=== PATIENT | female | born 1935 | race Caucasian/White ===

== ENCOUNTER 2024-08-11 01:13 | Inpatient (IN) ==
--- NOTE | 2024-08-11 01:27 | Emergency Department Note ---
Impression & Plan Cellulitis, Hyperkalemia, Generalized weakness ED Provider Note Name: YOLETTE PEACE Age: 89 Sex: Female Arrives Via: Ambulance Informant: Patient, daughters ED Provider: Payam Jimenez MD Chief Complaint: Weakness Impression: As per impressions above Medical Decision Making: Pleasant 89-year-old female arrives for evaluation of significant worsening of weakness at home and inability to stand secondary to weakness. She has no neurodeficits on arrival and no headache neck pain or recent head injury. Ongoing symptoms for 2 to 3 days. She has edema of the right lower leg with an anterior right dubon cellulitis spreading beyond what was marked several hours earlier. Patient is afebrile but does have a history of significant bacteremia sepsis. Given degree of weakness and findings blood cultures lactic acid obtained. Fortunately there is no evidence of sepsis at this time beyond the weakness but I do not feel she meets severe sepsis/septic shock criteria. She was given 1 L normal saline bolus as she appears a bit on the dehydrated side. She was empirically given Rocephin for antibiotic coverage along with vancomycin. Patient is feeling bit better after some IV fluids. She looks well but given the degree of weakness that worsening cellulitis and her significant history of infections hospitalization is indicated. Triage/Nursing Notes reviewed by Me Differential:Infection, dehydration, metabolic abnormality, hypo/hyperglycemia, electrolyte disturbance, anemia, hypoxia, cardiac sources, intracerebral event, toxicologic, neurologic, as well as other pathologies. Vital Signs: reviewed and remarkable for mildly elevated potassium nonspecific. Interventions: 1 L normal saline bolus IV, Rocephin IV, vancomycin IV Labs:ED labs Reviewed by me and remarkable for no significant abnormalities EKG:As per my interpretation. Indication weakness. Sinus rhythm with sinus arrhythmia at 73 bpm QTc of 414. There is no ectopy nor ischemia. There are no previous EKGs for comparison. Cardiac/Tele Monitoring: Cardiac Monitoring: An Order was placed for continuous cardiac monitoring. The monitor shows a rate of 70 with a normal sinus rhythm. Consults:[facility] and he will further evaluate and manage Plan: Disposition:Hospitalization. Condition: Good History of Present Illness: 89-year-old female arrives for evaluation of weakness. Patient notes that for the last 2 to 3 days worsening fatigue illness body aches shoulder aches and exhaustion. This evening while going to the bathroom she was so weak she could not stand up ended up kneeling on her knees for a bit. Denies any specific pain. EMS called given the severe weakness. Patient brought to the ER no interventions prior to arrival. Patient has no specific complaints other than feeling a bit tired currently. Patient does have a history of sepsis and a "bloodstream infection" in the last several years following a heart catheterization. She notes some chronic right leg swelling. Her daughter few hours ago marked a red area on her right lower leg. Past Medical History: Hypertension, hypothyroidism, CKD, CHF Home Medications:See Below Allergies:See Below Vitals:Blood Pressure: 145/74, Pulse 66, RR 16, T 36.7C, O2 95% on RA Physical Exam: GENERAL: Patient is elderly appearing and in mild distress. Dehydrated appearing. RESPIRATORY: No dyspnea. Clear to auscultation and equal bilaterally. CARDIOVASCULAR: Regular rate and rhythm.No murmur appreciated. GASTROINTESTINAL: Abdomen soft, non-tender, no peritonitis. EXTREMITIES: Cellulitis right anterior dubon, extending beyond marked areas. Normal motion all extremities, no cyanosis, moderate right lower leg edema. NEUROLOGIC: Alert and oriented. No focal neurologic deficits appreciated SKIN: No rash, no jaundice, no diaphoresis. PSYCH: Appropriate GCS: 15 ED Course: Times/Reassessments: Patient appears a bit improved with IV fluids and they are agreeable to hospitalization. Payam Jimenez MD Past Med/Surg History Problem List (Updated 08/11/24 @ 05:28 by Payam Jimenez MD) Generalized weakness (Acute) Hyperkalemia (Acute) HFrEF (heart failure with reduced ejection fraction) HTN (hypertension) Hypothyroidism Elevated troponin CKD (chronic kidney disease) Cellulitis (Acute) Surgical History (Updated 08/11/24 @ 04:27 by Justine Orr DO) H/O total knee replacement B/L S/P hysterectomy Social History Smoking Status: Never smoker Preferred Language: Greenlandic Feels Safe at Home: Yes Allergies Allergies Allergy/AdvReac Type Severity Reaction Status Date / Time amlodipine [From Norvasc] Allergy Unknown Verified 08/11/24 04:18 clindamycin Allergy Unknown Verified 08/11/24 04:18 gabapentin [From Neurontin] Allergy Unknown Verified 08/11/24 04:18 meloxicam [From Mobic] Allergy Unknown Verified 08/11/24 04:18 Penicillins Allergy Unknown Verified 08/11/24 04:18 Dlxiurp-CRH-QxK Reductase Allergy Unknown Verified 08/11/24 04:18 Inhibitor Sulfa (Sulfonamide Allergy Unknown Verified 08/11/24 04:18 Antibiotics) tramadol Allergy Unknown Verified 08/11/24 04:18 Home Meds Home Medications Medication Instructions Recorded Confirmed carvedilol 25 mg tablet 25 mg BID 08/11/24 08/11/24 furosemide 40 mg tablet 40 mg DAILY 08/11/24 08/11/24 levothyroxine 75 mcg tablet 75 mcg DAILY 08/11/24 08/11/24 potassium chloride 20 mEq 40 meq PO DAILY 08/11/24 08/11/24 tablet,extended release(part/cryst) sacubitril 97 mg-valsartan 103 mg 97 - 103 tab BID 08/11/24 08/11/24 tablet (Entresto) spironolactone 25 mg tablet 25 mg DAILY 08/11/24 08/11/24 Results & Data (ED) Vital Signs Vital Signs - 24 hr 08/11/24 01:25 08/11/24 01:26 08/11/24 01:54 Temperature 36.7 C Temperature Source Oral Pulse Rate 60 67 Respiratory Rate 16 Blood Pressure 205/90 H Blood Pressure Mean 128 Pulse Oximetry 97 98 Oxygen Delivery Method Room Air Room Air Sepsis Recent Fever Within 48 Hours No Sepsis New/Unexplained Change in Mental Status N/A Sepsis Action Taken by Nursing No Action Required Laboratory Data 08/11/24 01:35 08/11/24 01:35 Lab Results 08/11/24 08/11/24 08/11/24 Range/Units 01:35 01:49 01:50 WBC 12.41 H (4.8-10.8) K/ul RBC 4.09 L (4.20-5.40) M/uL Hgb 12.1 (12.0-16.0) g/dl Hct 36.7 L (37.0-47.0) % MCV 89.7 (80.0-100.0) fL MCH 29.6 (25.0-34.0) pg MCHC 33.0 (32.0-36.0) g/dL RDW Std Deviation 43.7 (36.4-46.3) fL RDW Coeff of Autumn 13.3 (11.5-14.5) % Plt Count 252 (130-400) K/uL MPV 11.1 (9.4-12.4) fL Immature Gran % (Auto) 0.4 % Neut % (Auto) 82.9 % Lymph % (Auto) 7.6 % Harney % (Auto) 8.1 % Eos % (Auto) 0.7 % Baso % (Auto) 0.3 % Neut # (Auto) 10.29 H (1.40-6.50) K/uL Lymph # (Auto) 0.94 L (1.20-3.40) K/uL Harney # (Auto) 1.00 H (0.11-0.59) K/uL Eos # (Auto) 0.09 (0.00-0.50) K/uL Baso # (Auto) 0.04 (0.00-0.20) K/uL Immature Gran # (Auto) 0.05 (0.01-0.20) K/uL Sodium 135 L (136-145) mmol/L Potassium 5.5 H (3.5-5.1) mmol/L Chloride 107 (98-107) mmol/L Carbon Dioxide 23 (21-32) mmol/L Anion Gap 5 (3-11) BUN 32 H (6-23) mg/dl Creatinine 1.50 H (0.6-1.2) mg/dl Est Cr Clr Drug Dosing 37.8 ml/min eGFR 33.52 BUN/Creatinine Ratio 21.3 H (10-20) Glucose 109 H (70-99(Fasting)) mg/dl Lactate 0.8 (0.4-2.0) mmol/L Calcium 8.8 (8.6-10.3) mg/dl Magnesium 1.8 (1.7-2.4) mg/dl Total Creatine Kinase 34 (26-192) U/L Troponin I High Sens 24.8 H (0-14) pg/ml Procalcitonin 0.03 (0-0.5) ng/ml TSH 1.781 (0.300-4.500) uIu/ml SARS-CoV-2 (PCR) NEGATIVE (Negative) Influenza Type A (PCR) Negative (Neg) Influenza Type B (PCR) Negative (Neg) RSV (RT-PCR) Negative (Neg) Administered Medications Discontinued Medications Sodium Chloride (Nss) 1,000 mls @ 999 mls/hr IV .Q1H1M ONE Stop: 08/11/24 02:23 Last Infusion: 08/11/24 05:10 Dose: Infused Documented By: Admin: 08/11/24 02:34 Dose: 999 mls/hr Documented By: IDD Ceftriaxone Sodium (Rocephin) 2,000 mg in 50 mls @ 100 mls/hr IV NOW STA Stop: 08/11/24 03:48 Last Infusion: 08/11/24 05:10 Dose: Infused Documented By: Admin: 08/11/24 04:32 Dose: 100 mls/hr Documented By: IDD Imaging Data Radiologist's Impression: Chest X-Ray 08/11/24 01:24 EXAM: XR chest 1V portable CLINICAL HISTORY: WEAKNESS JMF TECHNIQUE: Radiograph of chest was acquired. COMPARISON: None. FINDINGS: The lungs are clear and well-expanded with no pulmonary infiltrate or pleural effusion. The cardiomediastinal silhouette is within normal limits. No acute osseous abnormality. IMPRESSION: 1. No acute cardiopulmonary disease. Electronically signed by Madhu Del Toro 08-11-2024 03:18 AM Discharge Plan Visit Data Chief Complaint: Weakness Stated Complaint: WEAKNESS ED Provider: Payam Jimenez Discharge Problem: Cellulitis, Hyperkalemia, Generalized weakness Patient Disposition: Admitted As Inpatient Discharge Instructions Interventions: ED Discharge Assessment Last Done: 08/11/24 04:40 Discharge Problem: Cellulitis Qualifiers: Site of cellulitis: extremity Site of cellulitis of extremity: lower extremity Laterality: right Qualified Code(s): L03.115 - Cellulitis of right lower limb
[2024-08-11 02:14] LABS: Basophils # (auto) 0.04 K/uL (0.00-0.20); Basophils % (auto) 0.3 %; Eosinophils # (auto) 0.09 K/uL (0.00-0.50); Eosinophils % (auto) 0.7 %; Hematocrit (blood only) 36.7 % (37.0-47.0); Hemoglobin 12.1 g/dl (12.0-16.0); Immature Granulocytes # (auto) 0.05 K/uL (0.01-0.20); Immature Granulocytes % (auto) 0.4 %; Lymphocytes # (auto) 0.94 K/uL (1.20-3.40); Lymphocytes % (auto) 7.6 %; Mean Corpuscular Hemoglobin 29.6 pg (25.0-34.0); Mean Corpuscular Volume 89.7 fL (80.0-100.0); Mean Platelet Volume 11.1 fL (9.4-12.4); Monocytes % (auto) 8.1 %; Neutrophils # (auto) 10.29 K/uL (1.40-6.50); Neutrophils % (auto) 82.9 %; Platelet Count 252 K/uL (130-400); RDW Coefficient of Variation 13.3 % (11.5-14.5); RDW Standard Deviation 43.7 fL (36.4-46.3); Red Blood Count 4.09 M/uL (4.20-5.40); White Blood Count 12.41 K/ul (4.8-10.8)
[2024-08-11 02:32] LABS: BUN Creatinine Ratio 21.3 (10-20); Calcium 8.8 mg/dl (8.6-10.3); Creatinine Clr Calc Pharmacy 37.8 ml/min; Magnesium 1.8 mg/dl (1.7-2.4); Potassium 5.5 mmol/L (3.5-5.1)
[2024-08-11] MEDS: SODIUM CHLORIDE 0.9% 1,000 ML IV ONE (02:34)
[2024-08-11 02:40] LABS: Troponin I High Sensitivity 24.8 pg/ml (0-14)
[2024-08-11 02:46] LABS: Influenza A virus by PCR Negative (Neg); Influenza B virus by PCR Negative (Neg); RSV by PCR Negative (Neg); SARS CoV2 RNA(COVID-19) Ceph NEGATIVE (Negative)
[2024-08-11 02:49] LABS: Thyroid Stimulating Hormone 1.781 uIu/ml (0.300-4.500)
[2024-08-11] MEDS ORDERED: VANCOMYCIN CONSULT ACTIVE PRN (03:19)
--- NOTE | 2024-08-11 03:19 | XRay Report ---
EXAM: XR chest 1V portable CLINICAL HISTORY: WEAKNESS JMF TECHNIQUE: Radiograph of chest was acquired. COMPARISON: None. FINDINGS: The lungs are clear and well-expanded with no pulmonary infiltrate or pleural effusion. The cardiomediastinal silhouette is within normal limits. No acute osseous abnormality. IMPRESSION: 1. No acute cardiopulmonary disease. Electronically signed by Madhu Del Toro 08-11-2024 03:18 AM
--- NOTE | 2024-08-11 04:29 | History & Physical Report ---
Date of Service August 11, 2024 Assessment & Plan (1) Cellulitis: Plan: - continue ceftriaxone, vancomycin - mild leukocytosis= 12.4; does not meet any other SIRs criteria - procal= 0.03 - f/u blood culture (2) Elevated troponin: Plan: - mild elevation in troponin-> asymptomatic and without ischemic changes on EKG - repeat troponin pending - notes that she has had prior cardiac catheterization which was normal - likely demand ischemia in the setting of acute infection (3) CKD (chronic kidney disease): Plan: - follows with nephrology and baseline GFR of about 30 per pt - at baseline - continue to trend (4) Hyperkalemia: Plan: - No EKG changes - hold KCl, spironolactone - repeat BMP qAM- 4 hours from initial Plan Chronic Stable: HFrEF: continue Lasix, Entresto, carvedilol Hypothyroidism: continue levothyroxine Code: DNR/DNI Diet: Heart Health Dispo: Tele VTE Prophylaxis: Heparin History of Present Illness Primary Care Provider: Yazan Berman 89 year old female with a past medical history of HTN, HFrEF, hypothyroidism presenting with increased weakness, concern for cellulitis. 2 daughters are at bedside. Increased weakness over the past few days. Redness in right leg started today- outlined by one of daughters this morning and was getting bigger. Notes history of bacteremia and aseptic knee many years ago. Cellulitis left leg 04/2023. Follows with cardiology for HFrEF, not EF=55 04/2023. Follows with nephrology for CKD, baseline GFR of about 30. Denies chest pain, dyspnea. ED course Significant for: WBC= 12.41, K=5.5, creatine= 1.5. Troponin= 24.8, repeat pending. EKG with NSR, premature supraventricular complexes. CXR without acute pathology. S/P Rocephin, vancomycin, 1L NSS Allergies Allergy/AdvReac Type Severity Reaction Status Date / Time amlodipine [From Norvasc] Allergy Unknown Verified 08/11/24 04:18 clindamycin Allergy Unknown Verified 08/11/24 04:18 gabapentin [From Neurontin] Allergy Unknown Verified 08/11/24 04:18 meloxicam [From Mobic] Allergy Unknown Verified 08/11/24 04:18 Penicillins Allergy Unknown Verified 08/11/24 04:18 Tmtxwyb-IQK-AcI Reductase Allergy Unknown Verified 08/11/24 04:18 Inhibitor Sulfa (Sulfonamide Allergy Unknown Verified 08/11/24 04:18 Antibiotics) tramadol Allergy Unknown Verified 08/11/24 04:18 Home Medications Medication Instructions Recorded Confirmed Type carvedilol 25 mg tablet 25 mg BID 08/11/24 08/11/24 History furosemide 40 mg tablet 40 mg DAILY 08/11/24 08/11/24 History levothyroxine 75 mcg tablet 75 mcg DAILY 08/11/24 08/11/24 History potassium chloride 20 mEq 40 meq PO DAILY 08/11/24 08/11/24 History tablet,extended release(part/cryst) sacubitril 97 mg-valsartan 103 mg 97 - 103 tab BID 08/11/24 08/11/24 History tablet (Entresto) spironolactone 25 mg tablet 25 mg DAILY 08/11/24 08/11/24 History Past Med/Surg History Problem List (Updated 08/11/24 @ 05:28 by Payam Jimenez MD) Generalized weakness (Acute) Hyperkalemia (Acute) HFrEF (heart failure with reduced ejection fraction) HTN (hypertension) Hypothyroidism Elevated troponin CKD (chronic kidney disease) Cellulitis (Acute) Surgical History (Updated 08/11/24 @ 04:27 by Justine Orr DO) H/O total knee replacement B/L S/P hysterectomy Social History Smoking Status: Never smoker Hx Alcohol Use: No Hx Substance Use: No Preferred Language: Tuvaluan Communication Ability: Effective Director Of Catering Required: No Beliefs That Will Affect Care: None Current Living Situation: Family Feels Safe at Home: Yes Assistive Devices: Walker Review of Systems Review of Systems: As per above Physical Exam Physical Exam: Constitutional: well-appearing, no acute distress HEENT: NCAT, no conjunctival injection CV: regular rhythm, no murmur appreciated, extremities well-perfused, + LE edema Resp: CTABL, no wheezes/rales/rhonchi appreciated, no increased work of breathing GI: soft, nondistended, nontender MSK: no gross deformities appreciated Skin: + area of erythema right dubon, outlined in marker Neuro: alert, oriented, no focal neurologic deficit appreciated Results & Data Results & Data Vital Signs (Past 12 Hours) Vital Signs Temp Pulse Resp BP Pulse Ox O2 Del Method 08/11/24 01:54 98 Room Air 08/11/24 01:26 36.7 C 67 16 205/90 H 97 Room Air 08/11/24 01:25 60 Supervising Physician Co-Signing Physician Notes Attending addendum: I have physically seen this patient, have supervised the medical residents activities, and agree with the H&P unless as otherwise noted. Assessment and Plan: #Cellulitis of right lower extremity- Placed on vancomycin IV and ceftriaxone IV as noted Follow blood culture and sensitivity #Elevated troponin- Troponin 24.8 on admission Likely type II supply/demand mismatch Follow laboratory serially History of previous cardiac catheterization that was normal #Renal insufficiency/hyperkalemia- Creatinine 1.50, and potassium 5.5 Hold furosemide, spironolactone, Entresto and potassium chloride supplement for now Gentle IV hydration as noted and encouraging oral fluid intake Recheck laboratories every morning No signs of ectopy on EKG or monitor Follow renal function closely, since she is already got vancomycin from the ED Hypertension- Continue carvedilol Hypothyroidism- Continue levothyroxine Resident Activity Tracking Resident Involvement: Resident Care Provided Care Provided: Adult Hospital Medicine
[2024-08-11] MEDS: cefTRIAXone SODIUM 2,000 MG/50 ML BAG IV STA (04:32)
[2024-08-11 05:25] LABS: Basophils # (auto) 0.02 K/uL (0.00-0.20); Basophils % (auto) 0.2 %; Eosinophils # (auto) 0.04 K/uL (0.00-0.50); Eosinophils % (auto) 0.4 %; Hematocrit (blood only) 33.5 % (37.0-47.0); Hemoglobin 10.7 g/dl (12.0-16.0); Immature Granulocytes # (auto) 0.05 K/uL (0.01-0.20); Immature Granulocytes % (auto) 0.5 %; Lymphocytes # (auto) 1.03 K/uL (1.20-3.40); Lymphocytes % (auto) 9.5 %; Mean Corpuscular Hemoglobin 28.8 pg (25.0-34.0); Mean Corpuscular Hgb Conc 31.9 g/dL (32.0-36.0); Mean Corpuscular Volume 90.1 fL (80.0-100.0); Mean Platelet Volume 10.8 fL (9.4-12.4); Monocytes # (auto) 0.91 K/uL (0.11-0.59); Monocytes % (auto) 8.4 %; Neutrophils # (auto) 8.77 K/uL (1.40-6.50); Platelet Count 227 K/uL (130-400); RDW Coefficient of Variation 13.3 % (11.5-14.5); RDW Standard Deviation 44.5 fL (36.4-46.3); Red Blood Count 3.72 M/uL (4.20-5.40); White Blood Count 10.82 K/ul (4.8-10.8)
[2024-08-11 05:33] LABS: Calcium 8.1 mg/dl (8.6-10.3); Creatinine Clr Calc Pharmacy 41.9 ml/min; Potassium 5.2 mmol/L (3.5-5.1)
[2024-08-11] MEDS: VANCOMYCIN HCL 2,000 MG in SODIUM CHLORIDE 0.9% 500 ML IV ONE (05:44)
[2024-08-11 06:24] LABS: Appearance Urine Clear (Clear); Bacteria Urine Automated 4+ (None Seen); Bilirubin Urine Negative (Negative); Blood Urine Negative (Negative); Color Urine Yellow; Epithelial Cell Urine Auto 0-2 /hpf (0-2); Glucose Urine UA Negative (Negative); Ketones Urine Negative (Negative); Leukocyte Esterase Urine 2+ (Negative); Nitrite Urine Positive (Negative); Protein Urine Trace (Negative); RBC Urine Automated 0-2 /hpf (0-2); Specific Gravity Urine 1.016 (1.000-1.030); Urobilinogen Urine Negative (Negative); WBC Urine Automated 21-50 /hpf (0-5)
[2024-08-11] MEDS: LEVOTHYROXINE SODIUM 75 MCG TABLET PO SCH (06:27)
--- NOTE | 2024-08-11 07:35 | Hospitalist Progress Note ---
Date of Service August 11, 2024 Assessment & Plan (1) Cellulitis: (2) Hyperkalemia: (3) Hypothyroidism: (4) HFrEF (heart failure with reduced ejection fraction): (5) CKD (chronic kidney disease): Plan #Cellulitis: - continue ceftriaxone, vancomycin - mild leukocytosis= 12.4; does not meet any other SIRs criteria - procal= 0.03 - f/u blood culture #Elevated troponin: - mild elevation in troponin-> asymptomatic and without ischemic changes on EKG - trending flat (24.8 --> 25.4) - notes that she has had prior cardiac catheterization which was normal - likely demand ischemia in the setting of acute infection #Anemia - 12.1 --> 10.7 - check iron studies as outpatient, suspect abnormal in the setting of infection - trend Hgb at this time #Hyperkalemia: - No EKG changes - hold KCl, spironolactone - repeat BMP qAM- 4 hours from initial - trending down #Hypertension - SBP > 200 on admission - improving, trend at this time #CKD (chronic kidney disease): - follows with nephrology and baseline GFR of about 30 per pt - at baseline - continue to trend Chronic Stable: HFrEF: continue Lasix, Entresto, carvedilol Hypothyroidism: continue levothyroxine Code: DNR/DNI Diet: Heart Health Dispo: Tele VTE Prophylaxis: Heparin Admission and Anticipated Discharge Date Admission Date: August 11, 2024 Subjective admitted yesterday currently no new complaints Review of Systems Review of Systems: comprehensive ROS neg Results & Data Results & Data Vital Signs (Past 12 Hours) Vital Signs Temp Pulse Pulse Resp BP BP Pulse Ox 08/11/24 07:09 61 08/11/24 06:00 63 18 156/85 H 98 08/11/24 06:00 08/11/24 06:00 63 18 156/85 H 98 08/11/24 04:42 66 16 145/74 H 95 08/11/24 01:54 98 08/11/24 01:26 36.7 C 67 16 205/90 H 97 08/11/24 01:25 60 Pulse Ox O2 Del Method O2 Del Method 08/11/24 07:09 08/11/24 06:00 Room Air 08/11/24 06:00 98 Room Air 08/11/24 06:00 Room Air 08/11/24 04:42 08/11/24 01:54 Room Air 08/11/24 01:26 Room Air 08/11/24 01:25 PG Care Time/CCT Total # of Minutes Spent Total Time Spent with Patient: Total time spent is greater than 50% in coordination of care (as documented) at patient's floor/unit and/or counseling patient: Coding Level of Care Code 30798 SUB INP/OBS CARE 3/50MIN Diagnoses Cellulitis L03.115 Laterality: right Site of cellulitis: extremity Site of cellulitis of extremity: lower extremity Hyperkalemia E87.5 Hypothyroidism E03.9 HFrEF (heart failure with reduced ejection fraction) I50.20 CKD (chronic kidney disease) N18.9 (1) Cellulitis Laterality: right Site of cellulitis: extremity Site of cellulitis of extremity: lower extremity Qualified Code(s): L03.115 - Cellulitis of right lower limb
[2024-08-11] MEDS: HEPARIN SOD 5,000 UNIT/0.5 ML VIAL SQ SCH (08:32)
[2024-08-11] MEDS: VALSARTAN/SACUBITRIL 103/97MG TAB PO SCH (08:33)
[2024-08-11] MEDS: FUROSEMIDE 40 MG TAB PO SCH (08:33)
[2024-08-11] MEDS: carvediloL 25 MG TAB PO SCH (08:39)
--- NOTE | 2024-08-11 10:26 | Pharmacy Report ---
Pharmacy PK ABX Note - Date of Service August 11, 2024 - Assessment and Plan Assessment 89 year old F receiving vancomycin and ceftriaxone for treatment of cellulitis. Blood and urine cultures pending. (+) BEAU (SCr 1.5 --> 1.35). Day #1 of antimicrobial therapy. Plan Vancomycin * Loading dose: 2000 mg IV x 1 * Maintenance dose: 1250 mg IV every 24 hours. Given body habitus and SCr high likelihood of accumulation. * Regimen is predicted to achieve target AUC/CAROLIN of 400-600 mg/L.hr * Random level tomorrow Pharmacy will continue to follow and will adjust dose/frequency as necessary. Thank you. Pharmacy has transitioned to AUC monitoring for vancomycin. AUC/CAROLIN is the preferred PK/PD target and is associated with decreased risk of nephrotoxicity compared to traditional trough targets.
[2024-08-11] MEDS: VANCOMYCIN HCL 1,250 MG in SODIUM CHLORIDE 0.9% 250 ML IV SCH (18:10)
[2024-08-12] MEDS: cefTRIAXone SODIUM 2,000 MG/50 ML BAG IV SCH (04:35)
[2024-08-12 06:26] LABS: BUN Creatinine Ratio 21.9 (10-20); Basophils # (auto) 0.03 K/uL (0.00-0.20); Basophils % (auto) 0.3 %; Calcium 8.2 mg/dl (8.6-10.3); Creatinine Clr Calc Pharmacy 41.7 ml/min; Eosinophils # (auto) 0.11 K/uL (0.00-0.50); Eosinophils % (auto) 1.2 %; Hematocrit (blood only) 31.4 % (37.0-47.0); Hemoglobin 9.9 g/dl (12.0-16.0); Immature Granulocytes # (auto) 0.04 K/uL (0.01-0.20); Immature Granulocytes % (auto) 0.4 %; Lymphocytes # (auto) 0.83 K/uL (1.20-3.40); Lymphocytes % (auto) 8.8 %; Magnesium 1.7 mg/dl (1.7-2.4); Mean Corpuscular Hemoglobin 28.7 pg (25.0-34.0); Mean Corpuscular Hgb Conc 31.5 g/dL (32.0-36.0); Mean Platelet Volume 11.5 fL (9.4-12.4); Monocytes # (auto) 0.77 K/uL (0.11-0.59); Monocytes % (auto) 8.2 %; Neutrophils # (auto) 7.65 K/uL (1.40-6.50); Neutrophils % (auto) 81.1 %; Phosphorus 2.9 mg/dl (2.5-4.9); Platelet Count 227 K/uL (130-400); Potassium 4.5 mmol/L (3.5-5.1); RDW Coefficient of Variation 13.4 % (11.5-14.5); RDW Standard Deviation 44.7 fL (36.4-46.3); Red Blood Count 3.45 M/uL (4.20-5.40); White Blood Count 9.43 K/ul (4.8-10.8)
--- NOTE | 2024-08-12 08:01 | Hospitalist Progress Note ---
Date of Service August 12, 2024 Assessment & Plan (1) Cellulitis: (2) Hyperkalemia: (3) Hypothyroidism: (4) HFrEF (heart failure with reduced ejection fraction): (5) CKD (chronic kidney disease): Plan #Cellulitis: - still looks unchanged - continue ceftriaxone, vancomycin - elevate leg - mild leukocytosis= 12.4; does not meet any other SIRs criteria - procal= 0.03 - blood culture NGTD #Elevated troponin: - mild elevation in troponin-> asymptomatic and without ischemic changes on EKG - trending flat (24.8 --> 25.4) - notes that she has had prior cardiac catheterization which was normal - likely demand ischemia in the setting of acute infection #Anemia - 12.1 --> 10.7 --> 9.9 - check iron studies as outpatient, suspect abnormal in the setting of infection - trend Hgb at this time #Hyperkalemia: - No EKG changes - hold KCl, spironolactone - repeat BMP qAM- 4 hours from initial - trending down #Hypertension - SBP > 200 on admission - improving, trend at this time #CKD (chronic kidney disease): - follows with nephrology and baseline GFR of about 30 per pt - at baseline - continue to trend Chronic Stable: HFrEF: continue Lasix, Entresto, carvedilol Hypothyroidism: continue levothyroxine Code: DNR/DNI Diet: Heart Health Dispo: Tele VTE Prophylaxis: Heparin 08/12: pt's daughter is at bedside Admission and Anticipated Discharge Date Admission Date: August 11, 2024 Subjective No acute events overnight currently no new complaints Review of Systems Review of Systems: comprehensive ROS neg Physical Exam Physical Exam: Gen: NAD, lying in bed comfortable HEENT: NC/AT, MMM Lungs: CTAB CVS: s1s2nl, RRR Abd: nl bowel sounds, soft, NT Ext: b/l LE edema, right LE redness and warmth, appears unchanged to yesterday Results & Data Results & Data Vital Signs (Past 12 Hours) Vital Signs Temp Pulse Pulse Resp BP Pulse Ox O2 Del Method 08/12/24 07:53 36.9 C 75 18 161/68 H 95 Room Air 08/12/24 07:23 Room Air 08/12/24 07:04 70 08/12/24 02:22 37 C 71 18 145/70 H 95 Room Air 08/11/24 23:01 36.5 C 71 16 156/72 H 96 Room Air 08/11/24 21:46 66 08/11/24 21:15 Room Air 08/11/24 20:11 36.4 C L 75 16 144/75 H 95 Room Air PG Care Time/CCT Total # of Minutes Spent Total Time Spent with Patient: Total time spent is greater than 50% in coordination of care (as documented) at patient's floor/unit and/or counseling patient: Coding Level of Care Code 23936 SUB INP/OBS CARE 3/50MIN Diagnoses Cellulitis L03.115 Laterality: right Site of cellulitis: extremity Site of cellulitis of extremity: lower extremity Hyperkalemia E87.5 Hypothyroidism E03.9 HFrEF (heart failure with reduced ejection fraction) I50.20 CKD (chronic kidney disease) N18.9 (1) Cellulitis Laterality: right Site of cellulitis: extremity Site of cellulitis of extremity: lower extremity Qualified Code(s): L03.115 - Cellulitis of right lower limb
--- NOTE | 2024-08-12 10:01 | Pharmacy Report ---
Pharmacy PK ABX Note - Date of Service August 12, 2024 - Assessment and Plan Assessment 08/12: Day #2 vancomycin. Renal function stable. Blood and urine cultures NGTD. 08/11: 89 year old F receiving vancomycin and ceftriaxone for treatment of cellulitis. Blood and urine cultures pending. (+) BEAU (SCr 1.5 --> 1.35). Day #1 of antimicrobial therapy. Plan Vancomycin * Current regimen: vancomycin 1250mg IV q24h * Random level this AM (~14.5h level), 15.9mcg/mL. Predicted to achieve ssAUC 518mg/L.hr - therapeutic. * Continue vancomycin 1250mg IV q24h * Repeat level in ~ 48h or sooner if clinically indicated Pharmacy will continue to follow and will adjust dose/frequency as necessary. Thank you. Pharmacy has transitioned to AUC monitoring for vancomycin. AUC/CAROLIN is the preferred PK/PD target and is associated with decreased risk of nephrotoxicity compared to traditional trough targets.
[2024-08-12] MEDS: ADVANCED PROBIOTIC 625 MG CAPSULE PO SCH (19:56)
--- NOTE | 2024-08-12 21:21 | Billing Data ---
Date of Service August 12, 2024 Coding Level of Care Code 46373 INT INP/OBS CARE
[2024-08-13 06:35] LABS: Hematocrit (blood only) 30.2 % (37.0-47.0); Hemoglobin 9.7 g/dl (12.0-16.0); Mean Corpuscular Hemoglobin 28.9 pg (25.0-34.0); Mean Corpuscular Hgb Conc 32.1 g/dL (32.0-36.0); Mean Corpuscular Volume 89.9 fL (80.0-100.0); Mean Platelet Volume 11.3 fL (9.4-12.4); Platelet Count 223 K/uL (130-400); RDW Coefficient of Variation 13.3 % (11.5-14.5); RDW Standard Deviation 44.1 fL (36.4-46.3); Red Blood Count 3.36 M/uL (4.20-5.40); White Blood Count 6.85 K/ul (4.8-10.8)
[2024-08-13 06:46] LABS: Calcium 8.2 mg/dl (8.6-10.3); Magnesium 1.7 mg/dl (1.7-2.4)
[2024-08-13 06:51] LABS: BUN Creatinine Ratio 20.8 (10-20); Phosphorus 3.1 mg/dl (2.5-4.9)
--- NOTE | 2024-08-13 09:06 | Electrocardiogram Report ---
Test Reason : Blood Pressure : */* mmHG Vent. Rate : 73 BPM Atrial Rate : 73 BPM P-R Int : 184 ms QRS Dur : 96 ms QT Int : 376 ms P-R-T Axes : 50 -11 30 degrees QTcB Int : 414 ms Sinus rhythm with Premature supraventricular complexes vs marked sinus arrhythmia Otherwise normal ECG No previous ECGs available Confirmed by Jl Saha ([id number]) on 08/13/2024 9:06:04 AM Referred By: REFERRED SELF Confirmed By: Jl Saha
--- NOTE | 2024-08-13 13:21 | Hospitalist Progress Note ---
Date of Service August 13, 2024 Assessment & Plan (1) Cellulitis: Plan: -Improving area of redness - continue ceftriaxone, vancomycin - Continue to monitor - procal= 0.03 - f/u blood culture -Will de escalate antibiotics tomorrow (2) Elevated troponin: Plan: - mild elevation in troponin-> asymptomatic and without ischemic changes on EKG - repeat troponin pending - notes that she has had prior cardiac catheterization which was normal - likely demand ischemia in the setting of acute infection (3) CKD (chronic kidney disease): Plan: - follows with nephrology and baseline GFR of about 30 per pt - at baseline - continue to trend (4) Hyperkalemia: Plan: -resolved - No EKG changes - hold KCl, spironolactone Plan Chronic Stable: HFrEF: continue Lasix, Entresto, carvedilol Hypothyroidism: continue levothyroxine Code: DNR/DNI Diet: [employer] Dispo: Tele VTE Prophylaxis: Heparin continue hopsitalization, hopefully d/c in the next 48 hrs Admission and Anticipated Discharge Date Admission Date: August 11, 2024 Subjective patient seen and examined, sitting up in the chair, says there is a slight improvement in the area of cellulitis Review of Systems Review of Systems: All systems reviewed are negative, apart from the ones contained in the history. Physical Exam Physical Exam: The patient is awake, alert and oriented 3, well developed and well nourished, normocephalic and atraumatic, lying in bed and in no acute distress. HEENT--PERRL, EOMI, mucous membranes and oropharynx mildly dry Neck--supple. No JVD. No bruits. Thyroid normal, trachea midline, no adenopathy. Heart--normal S1 and S2. No murmurs, rubs or gallops. Lungs--clear bilaterally, no respiratory distress, no accessory muscle use. Abdomen--normal bowel sounds and soft. Extremities--no cyanosis or clubbing. No edema. Dermatologic--improvong area of redness Neurologic--cranial nerves II through XII grossly intact. Rheumatologic--normal range of motion. Psychiatric--normal affect. Results & Data Results & Data Vital Signs (Past 12 Hours) Vital Signs Temp Pulse Pulse Resp BP Pulse Ox O2 Del Method 08/13/24 11:45 98.1 F 73 16 145/72 H 96 Room Air 08/13/24 07:56 Room Air 08/13/24 07:23 98.1 F 68 16 156/72 H 95 Room Air 08/13/24 07:00 68 08/13/24 01:37 97.9 F 75 18 129/69 95 Room Air PG Care Time/CCT Total # of Minutes Spent Total Time Spent with Patient: Total time spent is greater than 50% in coordination of care (as documented) at patient's floor/unit and/or counseling patient: Coding Level of Care Code 76718 SUB INP/OBS CARE 2/35MIN Diagnoses Cellulitis L03.115 Laterality: right Site of cellulitis: extremity Site of cellulitis of extremity: lower extremity Elevated troponin R79.89 CKD (chronic kidney disease) N18.9 Hyperkalemia E87.5 Time Spent (min) 35 (1) Cellulitis Laterality: right Site of cellulitis: extremity Site of cellulitis of extremity: lower extremity Qualified Code(s): L03.115 - Cellulitis of right lower limb
[2024-08-14 06:39] LABS: Hematocrit (blood only) 29.2 % (37.0-47.0); Hemoglobin 9.5 g/dl (12.0-16.0); Mean Corpuscular Hemoglobin 29.1 pg (25.0-34.0); Mean Corpuscular Hgb Conc 32.5 g/dL (32.0-36.0); Mean Corpuscular Volume 89.6 fL (80.0-100.0); Mean Platelet Volume 11.1 fL (9.4-12.4); Platelet Count 250 K/uL (130-400); RDW Coefficient of Variation 13.2 % (11.5-14.5); RDW Standard Deviation 43.2 fL (36.4-46.3); Red Blood Count 3.26 M/uL (4.20-5.40); White Blood Count 5.49 K/ul (4.8-10.8)
[2024-08-14 06:57] LABS: Creatinine Clr Calc Pharmacy 35.1 ml/min
--- NOTE | 2024-08-14 11:27 | Hospitalist Progress Note ---
Date of Service August 14, 2024 Assessment & Plan (1) Cellulitis: Plan: -Improving area of redness - continue ceftriaxone, vancomycin - Continue to monitor - procal= 0.03 - f/u blood culture -Will de escalate antibiotics prior to discharge (2) Elevated troponin: Plan: - mild elevation in troponin-> asymptomatic and without ischemic changes on EKG - repeat troponin pending - notes that she has had prior cardiac catheterization which was normal - likely demand ischemia in the setting of acute infection (3) CKD (chronic kidney disease): Plan: - follows with nephrology and baseline GFR of about 30 per pt - at baseline - continue to trend (4) Hyperkalemia: Plan: -resolved - No EKG changes - hold KCl, spironolactone Plan Chronic Stable: HFrEF: continue Lasix, Entresto, carvedilol Hypothyroidism: continue levothyroxine Code: DNR/DNI Diet: [employer] Dispo: Tele VTE Prophylaxis: Heparin continue hopsitalization, hopefully d/c in the next 48 hrs Admission and Anticipated Discharge Date Admission Date: August 11, 2024 Subjective patient seen and examined, sitting up in the chair, says there is a slight improvement in the area of cellulitis Review of Systems Review of Systems: All systems reviewed are negative, apart from the ones contained in the history. Physical Exam Physical Exam: The patient is awake, alert and oriented 3, well developed and well nourished, normocephalic and atraumatic, lying in bed and in no acute distress. HEENT--PERRL, EOMI, mucous membranes and oropharynx mildly dry Neck--supple. No JVD. No bruits. Thyroid normal, trachea midline, no adenopathy. Heart--normal S1 and S2. No murmurs, rubs or gallops. Lungs--clear bilaterally, no respiratory distress, no accessory muscle use. Abdomen--normal bowel sounds and soft. Extremities--no cyanosis or clubbing. No edema. Dermatologic--improvong area of redness Neurologic--cranial nerves II through XII grossly intact. Rheumatologic--normal range of motion. Psychiatric--normal affect. Results & Data Results & Data Vital Signs (Past 12 Hours) Vital Signs Temp Pulse Resp BP BP Pulse Ox O2 Del Method 08/14/24 08:11 97.7 F 63 18 159/73 H 97 Room Air 08/14/24 03:27 97.5 F L 67 16 125/64 95 Room Air PG Care Time/CCT Total # of Minutes Spent Total Time Spent with Patient: Total time spent is greater than 50% in coordination of care (as documented) at patient's floor/unit and/or counseling patient: Coding Level of Care Code 00785 SUB INP/OBS CARE 2/35MIN Diagnoses Cellulitis L03.115 Laterality: right Site of cellulitis: extremity Site of cellulitis of extremity: lower extremity Elevated troponin R79.89 CKD (chronic kidney disease) N18.9 Hyperkalemia E87.5 Time Spent (min) 35 (1) Cellulitis Laterality: right Site of cellulitis: extremity Site of cellulitis of extremity: lower extremity Qualified Code(s): L03.115 - Cellulitis of right lower limb
[2024-08-14] MEDS: DOXYCYCLINE HYCLATE 100 MG CAP PO SCH (17:11)
[2024-08-14] MEDS: cephALEXin 500 MG CAP PO SCH (17:11)
[2024-08-15 07:48] LABS: Hematocrit (blood only) 29.1 % (37.0-47.0); Hemoglobin 9.5 g/dl (12.0-16.0); Mean Corpuscular Hemoglobin 29.1 pg (25.0-34.0); Mean Corpuscular Hgb Conc 32.6 g/dL (32.0-36.0); Mean Corpuscular Volume 89.3 fL (80.0-100.0); Mean Platelet Volume 11.2 fL (9.4-12.4); Platelet Count 258 K/uL (130-400); RDW Coefficient of Variation 13.2 % (11.5-14.5); RDW Standard Deviation 43.2 fL (36.4-46.3); Red Blood Count 3.26 M/uL (4.20-5.40); White Blood Count 4.12 K/ul (4.8-10.8)
--- NOTE | 2024-08-15 11:20 | Hospitalist Progress Note ---
Date of Service August 15, 2024 Assessment & Plan (1) Cellulitis: Plan: -Improving area of redness - Transition to PO cephalexin and Doxycycline - Continue to monitor (2) Elevated troponin: Plan: - mild elevation in troponin-> asymptomatic and without ischemic changes on EKG - repeat troponin pending - notes that she has had prior cardiac catheterization which was normal - likely demand ischemia in the setting of acute infection (3) CKD (chronic kidney disease): Plan: - follows with nephrology and baseline GFR of about 30 per pt - at baseline - continue to trend (4) Hyperkalemia: Plan: -resolved - No EKG changes - hold KCl, spironolactone (5) Generalized weakness: Plan: Physical deconditioning PT/OT eval pending Plan Chronic Stable: HFrEF: continue Lasix, Entresto, carvedilol Hypothyroidism: continue levothyroxine Code: DNR/DNI Diet: [employer] Dispo: Tele VTE Prophylaxis: Heparin continue hopsitalization, hopefully d/c in the next 48 hrs Admission and Anticipated Discharge Date Admission Date: August 11, 2024 Subjective patient seen and examined, sitting up in the chair, says there is a slight improvement in the area of cellulitis Review of Systems Review of Systems: All systems reviewed are negative, apart from the ones contained in the history. Physical Exam Physical Exam: The patient is awake, alert and oriented 3, well developed and well nourished, normocephalic and atraumatic, lying in bed and in no acute distress. HEENT--PERRL, EOMI, mucous membranes and oropharynx mildly dry Neck--supple. No JVD. No bruits. Thyroid normal, trachea midline, no adenopathy. Heart--normal S1 and S2. No murmurs, rubs or gallops. Lungs--clear bilaterally, no respiratory distress, no accessory muscle use. Abdomen--normal bowel sounds and soft. Extremities--no cyanosis or clubbing. No edema. Dermatologic--improvong area of redness Neurologic--cranial nerves II through XII grossly intact. Rheumatologic--normal range of motion. Psychiatric--normal affect. Results & Data Results & Data Vital Signs (Past 12 Hours) Vital Signs Temp Pulse Pulse Resp BP Pulse Ox O2 Del Method 08/15/24 07:35 97.9 F 59 L 18 147/69 H 95 Room Air 08/15/24 07:24 71 08/15/24 03:31 97.9 F 69 18 150/66 H 95 Room Air 08/15/24 00:50 98.4 F 69 18 147/71 H 95 Room Air PG Care Time/CCT Total # of Minutes Spent Total Time Spent with Patient: Total time spent is greater than 50% in coordination of care (as documented) at patient's floor/unit and/or counseling patient: Coding Level of Care Code 23756 SUB INP/OBS CARE 2/35MIN Diagnoses Cellulitis L03.115 Laterality: right Site of cellulitis: extremity Site of cellulitis of extremity: lower extremity Elevated troponin R79.89 CKD (chronic kidney disease) N18.9 Hyperkalemia E87.5 Generalized weakness R53.1 Time Spent (min) 35 (1) Cellulitis Laterality: right Site of cellulitis: extremity Site of cellulitis of extremity: lower extremity Qualified Code(s): L03.115 - Cellulitis of right lower limb
[2024-08-16 06:06] LABS: Hematocrit (blood only) 30.4 % (37.0-47.0); Hemoglobin 9.8 g/dl (12.0-16.0); Mean Corpuscular Hemoglobin 28.8 pg (25.0-34.0); Mean Corpuscular Hgb Conc 32.2 g/dL (32.0-36.0); Mean Corpuscular Volume 89.4 fL (80.0-100.0); Mean Platelet Volume 10.5 fL (9.4-12.4); Platelet Count 260 K/uL (130-400); RDW Coefficient of Variation 13.1 % (11.5-14.5); RDW Standard Deviation 43.3 fL (36.4-46.3); White Blood Count 4.02 K/ul (4.8-10.8)
--- NOTE | 2024-08-16 11:04 | Discharge Summary ---
Date of Service August 16, 2024 Admission HPI Per Admitting Provider 89 year old female with a past medical history of HTN, HFrEF, hypothyroidism presenting with increased weakness, concern for cellulitis. 2 daughters are at bedside. Increased weakness over the past few days. Redness in right leg started today- outlined by one of daughters this morning and was getting bigger. Notes history of bacteremia and aseptic knee many years ago. Cellulitis left leg 04/2023. Follows with cardiology for HFrEF, not EF=55 04/2023. Follows with nephrology for CKD, baseline GFR of about 30. Denies chest pain, dyspnea. ED course Significant for: WBC= 12.41, K=5.5, creatine= 1.5. Troponin= 24.8, repeat pending. EKG with NSR, premature supraventricular complexes. CXR without acute pathology. S/P Rocephin, vancomycin, 1L NSS Admission Exam (Per Admitting) Constitutional The patient is awake, alert and oriented 3, well developed and well nourished, normocephalic and atraumatic, lying in bed and in no acute distress. HEENT--PERRL, EOMI, mucous membranes and oropharynx mildly dry Neck--supple. No JVD. No bruits. Thyroid normal, trachea midline, no adenopathy. Heart--normal S1 and S2. No murmurs, rubs or gallops. Lungs--clear bilaterally, no respiratory distress, no accessory muscle use. Abdomen--normal bowel sounds and soft. Extremities--no cyanosis or clubbing. No edema. Dermatologic--normal skin turgor, normal color, no abnormal lymph nodes, no rash. Neurologic--cranial nerves II through XII grossly intact. Rheumatologic--normal range of motion. Psychiatric--normal affect. Discharge Data Consultations 08/11/24 03:40 ED Decision to Admit Stat Hospital Course (1) Cellulitis: -Improving area of redness - Transition to PO cephalexin and Doxycycline - d/c home (2) Elevated troponin: - mild elevation in troponin-> asymptomatic and without ischemic changes on EKG - repeat troponin pending - notes that she has had prior cardiac catheterization which was normal - likely demand ischemia in the setting of acute infection (3) CKD (chronic kidney disease): - follows with nephrology and baseline GFR of about 30 per pt - at baseline - continue to trend (4) Hyperkalemia: -resolved - No EKG changes - hold KCl, spironolactone (5) Generalized weakness: Physical deconditioning PT/OT eval pending Plan Chronic Stable: HFrEF: continue Lasix, Entresto, carvedilol Hypothyroidism: continue levothyroxine Code: DNR/DNI Diet: [employer] Dispo: Tele VTE Prophylaxis: Heparin d/c home Coding Level of Care Code 10382 INP/OBS DISCH >30 MIN Diagnoses Cellulitis L03.115 Laterality: right Site of cellulitis: extremity Site of cellulitis of extremity: lower extremity Elevated troponin R79.89 CKD (chronic kidney disease) N18.9 Hyperkalemia E87.5 Generalized weakness R53.1 Time Spent (min) 35
[2024-08-16 11:23] VITALS: BP 127/55; PULSE 64; RESP 20; TEMP 97.9; O2SAT 96
== END 2024-08-16 14:40 | disposition home health service (06) | DRG 603 ==
LOC: ED 01:13 → EDINP 04:16 → SUATTDRO 04:16 → 2W 04:40 → 2N 08-15 18:14

== ENCOUNTER 2025-01-25 22:47 | Inpatient (IN) ==
[2025-01-25] MEDS ORDERED: VANCOMYCIN CONSULT ACTIVE PRN (23:31)
[2025-01-25] MEDS: SODIUM CHLORIDE 0.9% 1,000 ML IV ONE (23:53)
[2025-01-25] MEDS: ACETAMINOPHEN 500 MG TAB PO STA (23:57)
[2025-01-26] LABS: Hematocrit (blood only) 36.6 % (37.0-47.0); Mean Corpuscular Hgb Conc 32.8 g/dL (32.0-36.0); Mean Corpuscular Volume 88.4 fL (80.0-100.0); Mean Platelet Volume 10.3 fL (9.4-12.4); Platelet Count 256 K/uL (130-400); RDW Coefficient of Variation 14.2 % (11.5-14.5); RDW Standard Deviation 45.3 fL (36.4-46.3); Red Blood Count 4.14 M/uL (4.20-5.40); White Blood Count 17.96 K/ul (4.8-10.8)
[2025-01-26] MEDS: VANCOMYCIN HCL 2,750 MG in SODIUM CHLORIDE 0.9% 500 ML IV ONE (00:08)
[2025-01-26 00:12] LABS: Appearance Urine Clear (Clear); Bacteria Urine Automated None Seen (None Seen); Bilirubin Urine Negative (Negative); Blood Urine 1+ (Negative); Cast Urine Automated 0-2 /lpf (0-2); Color Urine Yellow; Epithelial Cell Urine Auto 0-2 /hpf (0-2); Glucose Urine UA Negative (Negative); Ketones Urine Negative (Negative); Leukocyte Esterase Urine Negative (Negative); Nitrite Urine Negative (Negative); Protein Urine Negative (Negative); Specific Gravity Urine 1.011 (1.000-1.030); Urobilinogen Urine Negative (Negative); WBC Urine Automated 0-5 /hpf (0-5)
[2025-01-26 00:17] LABS: Albumin Level 3.4 gm/dl (3.4-5.0); BUN Creatinine Ratio 20.1 (10-20); Bilirubin Direct 0.1 mg/dl (0-0.2); Bilirubin,Total 0.5 mg/dl (0.2-1.0); Calcium 9.2 mg/dl (8.6-10.3); Creatinine Clr Calc Pharmacy 34.9 ml/min; Magnesium 1.8 mg/dl (1.7-2.4); Total Protein 6.7 gm/dl (6.0-8.3)
[2025-01-26 00:21] LABS: Basophils # (auto) 0.04 K/uL (0.00-0.20); Basophils % (auto) 0.2 %; Eosinophils # (auto) 0.02 K/uL (0.00-0.50); Eosinophils % (auto) 0.1 %; Immature Granulocytes # (auto) 0.11 K/uL (0.01-0.20); Immature Granulocytes % (auto) 0.6 %; Lymphocytes # (auto) 0.39 K/uL (1.20-3.40); Lymphocytes % (auto) 2.2 %; Monocytes # (auto) 0.49 K/uL (0.11-0.59); Monocytes % (auto) 2.7 %; Neutrophils # (auto) 16.91 K/uL (1.40-6.50); Neutrophils % (auto) 94.2 %; Polychromasia 1+
[2025-01-26 00:44] LABS: Troponin I High Sensitivity 655.1 pg/ml (0-14)
[2025-01-26] MEDS: SODIUM CHLORIDE 0.9% 1,000 ML IV ONE (01:02)
[2025-01-26 01:04] LABS: Influenza A virus by PCR Negative (Neg); Influenza B virus by PCR Negative (Neg); RSV by PCR Negative (Neg); SARS CoV2 RNA(COVID-19) Ceph NEGATIVE (Negative)
--- NOTE | 2025-01-26 02:23 | XRay Report ---
Exam(s): XR CXR 1 VIEW EXAM: XR Chest, 1 View CLINICAL HISTORY: Sepsis. TECHNIQUE: Frontal view of the chest. COMPARISON: 08/11/2024 FINDINGS: Heart is mildly enlarged. Pulmonary vessels are top-normal in caliber without definite CHF. Hypoventilation. Mild bibasilar atelectasis, less likely infiltrate. No pleural effusion or pneumothorax. Bones are unchanged. IMPRESSION: Pulmonary vessels top-normal in caliber without definite CHF. Hypoventilation with mild bibasilar atelectasis, less likely infiltrate. Electronically signed by: Fabian Yanez M.D. 01/26/25 02:22 AM
--- NOTE | 2025-01-26 03:20 | History & Physical Report ---
Date of Service January 26, 2025 Assessment & Plan (1) Sepsis: (2) Cellulitis of right leg: (3) Elevated troponin: (4) Chronic systolic heart failure: (5) HTN (hypertension): (6) Hypothyroidism: (7) Hyperlipidemia: (8) Stage 3b chronic kidney disease: (9) Morbid obesity with BMI of 40.0-44.9, adult: Plan 89yo female with chronic systolic CHF (uncertain EF), hypothyroidism, diffuse OA of numerous joints, HTN, CKD stage 3b, gout, morbid obesity, and untreated TESS presents from home after developing the acute onset of rigors about 6pm this evening. This was followed by weakness and familial concern for RLE cellulitis. #sepsis - -2nd to RLE cellulitis? the area of cellulitis is quite mild - out of proportion to how ill she became prior to presentation -[id number] will continue IV vancomycin for suspected cellulitis -follow blood cx's -she is s/p 30cc/kg of crystalloid using her IBW -perfusion exam at time of my assessment - pulses b/l feet 2+, cap refill b/l feet <2 sec #concern for RLE cellulitis - -family already demarkated the area of possible cellulitis -although it is very mild, she was brought to the hospital very quickly after becoming ill; certainly possible the cellulitis will be more prominent tonight/tomorrow -IV vancomycin -serial exams #elevated troponin - -presenting trop of 655 -repeat trop climbed to >1000 -no ischemic symptoms at home or at time of admission -given the height of the troponin and the rise will obtain echo - check EF, check LV wall motion, etc. -she does not carry a past dx of CAD -cont beta teresa -consider low-dose aspirin 81mg daily -at minimum the elevated troponin represents myocardial demand ischemia in the setting of sepsis #chronic systolic CHF - -appears compensated -the limited amount of outside records references her CHF but I cannot find a copy of any prior echo -check echo to ascertain EF -hold Entresto due to low-normal BPs -hold aldactone & lasix due to low-normal BPs and mildly volume contracted state -cont coreg, but lower the dose to 6.25mg BID as BPs are mildly low in setting of sepsis #hypothyroidism - -TSH 08/2024 wnl -cont synthroid #morbid obesity - -BMI 43.8 #DVT proph - -due to morbid obesity and poor mobility start heparin 7500 units TID #CKD stage 3b - -baseline Cr 1.3 to 1.6 -Cr 1.6 today; repeat BMP am pt's 2 daughters updated at bedside will need PT/OT History of Present Illness Chief Complaint: shaking chills, weakness, right leg redness Primary Care Provider: Yazan Berman 89yo female with chronic systolic CHF (uncertain EF), hypothyroidism, diffuse OA of numerous joints, hypothyroidism, HTN, CKD stage 3b, gout, and untreated TESS presents from home after developing the acute onset of rigors about 6pm this evening. Patient had an uneventful week and woke up this morning feeling ok. By afternoon she was more tired than usual. She sat down for dinner with her family to eat [place] food - she did eat the meal - but then developed the chills. This was followed by significant weakness and difficulty walking. Her daughter who is a retired nurse noted that the right dubon was mildly warm and erythematous. Family also noted she was mildly confused and her color was off. EMS was summoned and she was brought to [facility]. Upon arrival she was given IV fluid boluses along with IV vancomycin for RLE cellulitis. During my assessment two of her daughters were present at bedside and they stated the right leg already looked a little better and her overall appearance was improved. Patient herself desired to talk about her arthritic complaints including chronic right hand numbness more so than anything else. By nursing report patient had mentioned having palpitations earlier in the day but the patient did not mention this to me. Allergies Allergy/AdvReac Type Severity Reaction Status Date / Time amlodipine [From Norvasc] Allergy Unknown Verified 10/11/24 14:10 ceftriaxone [From Rocephin] Allergy Unknown unknown Verified 10/11/24 14:10 clindamycin Allergy Unknown Verified 10/11/24 14:10 clonidine [From Catapres] Allergy Unknown unknown Verified 10/11/24 14:10 doxycycline Allergy Unknown unknown Verified 10/11/24 14:10 gabapentin [From Neurontin] Allergy Unknown Verified 10/11/24 14:10 meloxicam [From Mobic] Allergy Unknown Verified 10/11/24 14:10 Penicillins Allergy Unknown Verified 10/11/24 14:10 [id number]-URK-WpP Reductase Allergy Unknown Verified 10/11/24 14:10 Inhibitor Sulfa (Sulfonamide Allergy Unknown Verified 10/11/24 14:10 Antibiotics) tramadol Allergy Unknown Verified 10/11/24 14:10 cefadroxil AdvReac Unknown unknown Uncoded 10/11/24 14:10 statins AdvReac Unknown unknown Uncoded 10/11/24 14:10 Home Medications Medication Instructions Recorded Confirmed Type carvedilol 25 mg tablet 25 mg BID 08/11/24 10/11/24 History levothyroxine 75 mcg tablet 75 mcg DAILY 08/11/24 10/11/24 History sacubitril 97 mg-valsartan 103 mg 97 - 103 tab BID 08/11/24 10/11/24 History tablet (Entresto) ibbopnnk-[id number]-FA-vit K-lut PO DAILY 09/04/24 10/11/24 History [Centrum Silver Women] furosemide 40 mg tablet 40 mg PO BID #60 tabs 09/10/24 10/11/24 Rx spironolactone 50 mg tablet 50 mg PO DAILY #90 tabs 10/11/24 10/11/24 Rx Past Med/Surg History Problem List (Updated 01/26/25 @ 07:29 by Robe Partida MD) Morbid obesity with BMI of 40.0-44.9, adult Cellulitis of right leg Sepsis Trochanteric bursitis of left hip Shoulder pain Shoulder impingement syndrome Ophthalmic migraine Osteoarthritis, knee Myopia of both eyes Mass of lower extremity Hypoglycemia Dyspnea Chronic cough Bacteremia Back pain Anemia Generalized weakness (Acute) Hyperkalemia (Acute) HFrEF (heart failure with reduced ejection fraction) Elevated troponin CKD (chronic kidney disease) Cellulitis (Acute) Medical History (Updated 01/26/25 @ 07:29 by Robe Partida MD) Anemia of chronic disease Vitamin D deficiency Stage 3b chronic kidney disease Venous stasis dermatitis Venous insufficiency Tributary (branch) retinal vein occlusion, left eye, with retinal neovascularization Spinal stenosis Presbyopia Cataract Obstructive sleep apnea Inflammatory arthritis Hyperlipidemia Lazara's disease Gout GERD (gastroesophageal reflux disease) DDD (degenerative disc disease), lumbar Chronic systolic heart failure Asthma Situational anxiety HTN (hypertension) Hypothyroidism Surgical History (Updated 01/26/25 @ 07:26 by Robe Partida MD) Hx of hemorrhoidectomy Hx of adenoidectomy Hx of tonsillectomy H/O cataract extraction H/O total knee replacement B/L S/P hysterectomy Family History Mother Anemia Eye problems Arthritis Hyperlipidemia Hypertension Coronary heart disease Father Arthritis COPD (chronic obstructive pulmonary disease) Allergies Hyperlipidemia Hypertension Sister Arthritis Aunt Diabetes Daughter Allergies Diabetes Social History (Updated 01/26/25 @ 07:27 by Robe Partida MD) Smoking Status: Never smoker Hx Alcohol Use: No Hx Substance Use: No Preferred Language: Bolivian Communication Ability: Effective 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 Hearing 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 Required: No Beliefs That Will Affect Care: None marital status: / Current Living Situation: Family Current Living Situation Comment: lives with daughter current occupational status: retired current occupation: worked at [employer] in [place] for 10+ years How many Children do You have: 6 Feels Safe at Home: Yes Safety Concerns: Feels Safe At This Time Diet: low salt and regular caffeine: Yes (1 pepsi daily) Physical Activity Frequency: Does not Exercise Seatbelt Use: always Do you think of yourself as: straight/heterosexual Gender Identity: Female Assistive Devices: Walker and Wheelchair Review of Systems Review of Systems: gen - rigors starting today; no weight change eyes - no blurry vision HENT - no dysphagia CV - no chest pain, no orthopnea pulm - no dyspnea at rest, no significant cough GI - no vomiting, no nausea - no recent dysuria musculo - weakness skin - chronic stasis changes of legs (shins) endo - no diabetes neuro - no headache Physical Exam Physical Exam: gen - morbidly obese, NAD, nontoxic, laying comfortably in bed eyes - PERRL HENT - MM dry, no lesions neck - no JVD heart - RRR, s1 s2 lungs - CTA b/l, no rales or wheezes abd - soft NT ND BS+ ext - <1+ edema b/l shins and feet vascular - pulses b/l feet 2+, cap refill < 2 sec neuro - strength 5/5 x 4 exts skin - background of venous stasis changes b/l shins; right dubon - mild patch of warm erythema - possibly early cellulitis psych - a/o x 3 musculo - b/l knees - NO synovitis/warmth/tenderness to palpation/tenderness with ROM Results & Data Results & Data Vital Signs (Past 12 Hours) Vital Signs Temp Pulse Pulse Resp BP BP Pulse Ox 01/26/25 03:01 79 01/26/25 03:00 77 22 105/79 96 01/26/25 02:55 77 20 115/55 L 95 01/26/25 01:30 83 24 110/56 L 95 01/26/25 01:00 90 24 137/63 96 01/26/25 00:30 37.4 C 96 H 24 151/80 H 100 01/26/25 00:09 91 H 24 168/80 H 96 01/25/25 23:30 92 H 24 183/96 H 94 01/25/25 23:25 01/25/25 23:10 96 01/25/25 23:10 88 L 01/25/25 23:03 90 01/25/25 22:58 38.5 C H 93 H 24 172/74 H 95 O2 Del Method O2 Flow Rate FiO2 01/26/25 03:01 01/26/25 03:00 Nasal Cannula 2 01/26/25 02:55 01/26/25 01:30 01/26/25 01:00 01/26/25 00:30 Nasal Cannula 2 01/26/25 00:09 Nasal Cannula 2 01/25/25 23:30 01/25/25 23:25 4 98 01/25/25 23:10 Nasal Cannula 4 01/25/25 23:10 Nasal Cannula 01/25/25 23:03 01/25/25 22:58 Room Air Laboratory Results Laboratory Results - last 24 hr 01/25/25 01/25/25 01/26/25 23:35 23:46 00:00 WBC 17.96 H RBC 4.14 L Hgb 12.0 Hct 36.6 L MCV 88.4 MCH 29.0 MCHC 32.8 RDW Std Deviation 45.3 RDW Coeff of Autumn 14.2 Plt Count 256 MPV 10.3 Immature Gran % (Auto) 0.6 Neut % (Auto) 94.2 Lymph % (Auto) 2.2 Zavala % (Auto) 2.7 Eos % (Auto) 0.1 Baso % (Auto) 0.2 Neut # (Auto) 16.91 H Lymph # (Auto) 0.39 L Zavala # (Auto) 0.49 Eos # (Auto) 0.02 Baso # (Auto) 0.04 Immature Gran # (Auto) 0.11 Polychromasia 1+ Sodium 138 Potassium 4.0 Chloride 101 Carbon Dioxide 30 Anion Gap 7 BUN 33 H Creatinine 1.64 H Est Cr Clr Drug Dosing 34.9 eGFR 30.12 BUN/Creatinine Ratio 20.1 H Glucose 125 H Lactate 1.4 Calcium 9.2 Magnesium 1.8 Total Bilirubin 0.5 Direct Bilirubin 0.1 AST 18 ALT 8 Alkaline Phosphatase 92 Troponin I High Sens 655.1 H* Total Protein 6.7 Albumin 3.4 Procalcitonin 3.75 H Urine Color Yellow Urine Appearance Clear Urine pH 7.0 Ur Specific [place] 1.011 Urine Protein Negative Urine Glucose (UA) Negative Urine Ketones Negative Urine Blood 1+ H Urine Nitrite Negative Urine Bilirubin Negative Urine Urobilinogen Negative Ur Leukocyte Esterase Negative Urine WBC (Auto) 0-5 Urine RBC (Auto) 11-20 H U Hyaline Cast (Auto) 0-2 U Epithel Cells (Auto) 0-2 Urine Bacteria (Auto) None Seen Urine Comment SARS-CoV-2 (PCR) NEGATIVE Influenza Type A (PCR) Negative Influenza Type B (PCR) Negative RSV (RT-PCR) Negative 01/26/25 02:21 WBC RBC Hgb Hct MCV MCH MCHC RDW Std Deviation RDW Coeff of Autumn Plt Count MPV Immature Gran % (Auto) Neut % (Auto) Lymph % (Auto) Zavala % (Auto) Eos % (Auto) Baso % (Auto) Neut # (Auto) Lymph # (Auto) Zavala # (Auto) Eos # (Auto) Baso # (Auto) Immature Gran # (Auto) Polychromasia Sodium Potassium Chloride Carbon Dioxide Anion Gap BUN Creatinine Est Cr Clr Drug Dosing eGFR BUN/Creatinine Ratio Glucose Lactate Calcium Magnesium Total Bilirubin Direct Bilirubin AST ALT Alkaline Phosphatase Troponin I High Sens 1145.5 H* D Total Protein Albumin Procalcitonin Urine Color Urine Appearance Urine pH Ur Specific [place] Urine Protein Urine Glucose (UA) Urine Ketones Urine Blood Urine Nitrite Urine Bilirubin Urine Urobilinogen Ur Leukocyte Esterase Urine WBC (Auto) Urine RBC (Auto) U Hyaline Cast (Auto) U Epithel Cells (Auto) Urine Bacteria (Auto) Urine Comment SARS-CoV-2 (PCR) Influenza Type A (PCR) Influenza Type B (PCR) RSV (RT-PCR) Diagnostic Findings Chest X-Ray 01/25/25 23:04 Exam(s): XR CXR 1 VIEW EXAM: XR Chest, 1 View CLINICAL HISTORY: Sepsis. TECHNIQUE: Frontal view of the chest. COMPARISON: 08/11/2024 FINDINGS: Heart is mildly enlarged. Pulmonary vessels are top-normal in caliber without definite CHF. Hypoventilation. Mild bibasilar atelectasis, less likely infiltrate. No pleural effusion or pneumothorax. Bones are unchanged. IMPRESSION: Pulmonary vessels top-normal in caliber without definite CHF. Hypoventilation with mild bibasilar atelectasis, less likely infiltrate. Electronically signed by: Fabian Yanez M.D. 01/26/25 02:22 AM EKG - my reading - NSR, no ST changes, Q wave in III, poor R wave progression Code Status & VTE Plan Code Status DNR/DNI VTE Prophylaxis Plan VTE Prophylaxis will be ordered: Yes PG Care Time/CCT Total # of Minutes Spent Total Time Spent with Patient: Total time spent is greater than 50% in coordination of care (as documented) at patient's floor/unit and/or counseling patient: Coding Level of Care Code 05458 INT INP/OBS CARE 3/75MIN Diagnoses Sepsis A41.9 Cellulitis of right leg L03.115 Elevated troponin R79.89 Chronic systolic heart failure I50.22 HTN (hypertension) I10 Hypothyroidism E03.9 Hyperlipidemia E78.5 Stage 3b chronic kidney disease N18.32 Morbid obesity with BMI of 40.0-44.9, adult E66.01; Z68.41
[2025-01-26] MEDS ORDERED: ONDANSETRON INJ 2 MG/ML 2 ML VIAL IV PRN (04:41)
[2025-01-26] MEDS: HEPARIN SOD 5,000 UNIT/0.5 ML VIAL SQ SCH (05:06)
[2025-01-26] MEDS: LEVOTHYROXINE SODIUM 75 MCG TABLET PO SCH (05:07)
--- NOTE | 2025-01-26 07:47 | Emergency Department Note ---
Impression & Plan Sepsis, Cellulitis of leg, right Admit to the [facility] ED Provider Note NAME: YOLETTE PEACE AGE: 89 SEX: Female INFORMANT: Patient's Daughters ED PROVIDER(S): Cherry Land DO CHIEF COMPLAINT: weakness and right lower extremity cellulitis PLAN: Disposition: Admit to the [facility] MEDICAL DECISION MAKING: This is an 89-year-old female patient who presents to the emergency department with a 2 to 3-day history of redness to her right lower extremity. This afternoon, the patient had increasing weakness and felt cold. She then developed palpitations and chills. She had similar episode happen in August of this year. Patient presents tonight hypertensive and febrile. Laboratory studies reveal white blood cell count of 17.9. H&H are stable. She has an elevated BUN at 33 with a creatinine of 1.64. Troponin is elevated at 655. EKG is unremarkable. Lactate was normal but procalcitonin was up to 3.7. COVID/flu/RSV testing was negative. Patient was medicated with 30 mL/kg of IV normal saline solution and IV vancomycin. She was also given Tylenol for her fever. I discussed the case with the [facility] and she will be admitted for sepsis. She remains hemodynamically stable. Care/management discussed with: bakery manager and [facility] Triage Nursing notes: reviewed and agree with them. Vital Signs: reviewed and remarkable for hypertension and fever Additional History obtained from: daughters at the bedside Prior/ Outside/ External records reviewed: previous inpatient records were reviewed. Differential Diagnosis: Sepsis, UTI, cellulitis, cardiac dysrhythmia, cardiac ischemia, viral illness Diagnostics, independently interpreted by me: ECG: normal sinus rhythm at a rate of [address] segment elevation or signs of ischemia. There is a poor baseline. There is no ectopy. Cardiac Monitoring: Normal sinus rhythm at 92 Imaging studies: portable chest x-ray: Cardiomegaly with no obvious evidence of congestive heart failure or pulmonary infiltrate HPI: 89 year old Female arrives for evaluation of weakness/chills and right lower extremity redness/pain. Patient has had increasing right lower extremity redness and pain over the past 2 to 3 days. She has a history of cellulitis in that leg in August of this year. This evening, the patient complained of feeling cold after dinner and developed weakness and chills. PAST MEDICAL HISTORY: See Below, PAST SURGICAL HISTORY: See Below, SOCIAL HISTORY: See Below, HOME MEDICATIONS: See list ALLERGIES: See long list VITALS: See Below PHYSICAL EXAMINATION: HEENT: Head - normocephalic and atraumatic. Pupils are equal, round, and reactive to light. Extraocular eye muscles are intact, and sclera are anicteric. Nose - moist nasal mucosa without discharge. Mouth -dry buccal mucosa. Oropharynx is nonerythematous and there is no tonsillar exudate or edema noted. Neck: Supple; no JVD, nuchal rigidity, cervical lymphadenopathy. Heart: Regular rate and rhythm. There is a normal S1 and S2 with no murmurs, clicks, or gallops appreciated. Lungs: Clear to auscultation bilaterally with no wheezes, rales, or rhonchi. Abdomen: Soft, completely nontender, nondistended, with good bowel sounds. There are no palpable pulsatile masses or hepatosplenomegaly. There is no guarding, rigidity, or rebound noted. Extremities: Light pink shade to the lower right extremity with a more solid area of redness in the anterior tib-fib region consistent with cellulitis. Edema to the right lower extremity. Skin: warm and dry with poor turgor and no rashes. Emergency Department treatment: equipment monitor phototypesetting, Tylenol, IV vancomycin, IV normal saline, supplemental oxygen. Emergency Department course: The patient was evaluated in room C-9. Septic protocol was performed. Laboratory studies were drawn as above. An order was placed for continuous cardiac monitoring. The patient was in a normal sinus rhythm at a rate of 92. A twelve-lead EKG was obtained as described above. Portable chest x-ray was performed. Patient was bolused with IV normal saline solution. She was given a dose of IV vancomycin. She was noted to be hypoxic at times and was placed on supplemental oxygen. She does have a history of sleep apnea. Patient remains hemodynamically stable. I discussed the case with the [facility] Hospitalist and they will evaluate for further inpatient care. I have personally spent greater than 45 minutes of critical care time in the direct management of this patient. This includes bedside care, interpretation of diagnostic studies, and testing, discussion with consultants, patient, and family members, and other required patient management activities. This 45 minutes is in excess of all separately billable procedures. Past Med/Surg History Problem List (Updated 01/26/25 @ 17:03 by Cherry Land DO) Cellulitis of leg, right (Acute) Sepsis (Acute) Morbid obesity with BMI of 40.0-44.9, adult Cellulitis of right leg Sepsis Trochanteric bursitis of left hip Shoulder pain Shoulder impingement syndrome Ophthalmic migraine Osteoarthritis, knee Myopia of both eyes Mass of lower extremity Hypoglycemia Dyspnea Chronic cough Bacteremia Back pain Anemia Generalized weakness (Acute) Hyperkalemia (Acute) HFrEF (heart failure with reduced ejection fraction) Elevated troponin CKD (chronic kidney disease) Cellulitis (Acute) Medical History (Updated 01/26/25 @ 17:03 by Cherry Land DO) Anemia of chronic disease Vitamin D deficiency Stage 3b chronic kidney disease Venous stasis dermatitis Venous insufficiency Tributary (branch) retinal vein occlusion, left eye, with retinal neovascularization Spinal stenosis Presbyopia Cataract Obstructive sleep apnea Inflammatory arthritis Hyperlipidemia Lazara's disease Gout GERD (gastroesophageal reflux disease) DDD (degenerative disc disease), lumbar Chronic systolic heart failure Asthma Situational anxiety HTN (hypertension) Hypothyroidism Surgical History (Updated 01/26/25 @ 07:26 by Robe Partida MD) Hx of hemorrhoidectomy Hx of adenoidectomy Hx of tonsillectomy H/O cataract extraction H/O total knee replacement B/L S/P hysterectomy Family History Mother Anemia Eye problems Arthritis Hyperlipidemia Hypertension Coronary heart disease Father Arthritis COPD (chronic obstructive pulmonary disease) Allergies Hyperlipidemia Hypertension Sister Arthritis Aunt Diabetes Daughter Allergies Diabetes Social History (Updated 01/26/25 @ 07:27 by Robe Partida MD) Smoking Status: Never smoker Hx Alcohol Use: No Hx Substance Use: No Preferred Language: Mongolian Communication Ability: Effective [place] Required: No Beliefs That Will Affect Care: None marital status: / Current Living Situation: Family Current Living Situation Comment: lives with daughter current occupational status: retired current occupation: worked at [employer] in [place] for 10+ years How many Children do You have: 6 Feels Safe at Home: Yes Safety Concerns: Feels Safe At This Time Diet: low salt and regular caffeine: Yes (1 pepsi daily) Physical Activity Frequency: Does not Exercise Seatbelt Use: always Do you think of yourself as: straight/heterosexual Gender Identity: Female Assistive Devices: Walker and Wheelchair Allergies Allergies Allergy/AdvReac Type Severity Reaction Status Date / Time amlodipine [From Norvasc] Allergy Unknown Verified 10/11/24 14:10 ceftriaxone [From Rocephin] Allergy Unknown unknown Verified 10/11/24 14:10 clindamycin Allergy Unknown Verified 10/11/24 14:10 clonidine [From Catapres] Allergy Unknown unknown Verified 10/11/24 14:10 doxycycline Allergy Unknown unknown Verified 10/11/24 14:10 gabapentin [From Neurontin] Allergy Unknown Verified 10/11/24 14:10 meloxicam [From Mobic] Allergy Unknown Verified 10/11/24 14:10 Penicillins Allergy Unknown Verified 10/11/24 14:10 [id number] Reductase Allergy Unknown Verified 10/11/24 14:10 Inhibitor Sulfa (Sulfonamide Allergy Unknown Verified 10/11/24 14:10 Antibiotics) tramadol Allergy Unknown Verified 10/11/24 14:10 cefadroxil AdvReac Unknown unknown Uncoded 10/11/24 14:10 statins AdvReac Unknown unknown Uncoded 10/11/24 14:10 Home Meds Home Medications Medication Instructions Recorded Confirmed carvedilol 25 mg tablet 25 mg BID 08/11/24 10/11/24 levothyroxine 75 mcg tablet 75 mcg DAILY 08/11/24 10/11/24 sacubitril 97 mg-valsartan 103 mg 97 - 103 tab BID 08/11/24 10/11/24 tablet (Entresto) [id number] K-lut PO DAILY 09/04/24 10/11/24 [Centrum Silver Women] Previous Rx's Medication Instructions Recorded furosemide 40 mg tablet 40 mg PO BID #60 tabs 09/10/24 spironolactone 50 mg tablet 50 mg PO DAILY #90 tabs 10/11/24 Results & Data (ED) Vital Signs Vital Signs - 24 hr 01/25/25 22:58 01/25/25 23:03 01/25/25 23:10 Temperature 38.5 C H Temperature Source Oral Pulse Rate 93 H 90 Pulse Rate [Apical] Respiratory Rate 24 Respiratory Effort / Characteristics Non-Labored Respiratory Depth Normal Blood Pressure 172/74 H Blood Pressure [Left Arm] Blood Pressure Mean 106 Blood Pressure Mean [Left Arm] Pulse Oximetry 95 88 L Oxygen Delivery Method Room Air Nasal Cannula Oxygen Flow Rate Fraction of Inspired Oxygen Sepsis Recent Fever Within 48 Hours Yes Sepsis New/Unexplained Change in Mental Status No Sepsis Action Taken by Nursing No Action Required Oxygen Flow Rate - Titration 4 Fraction of Inspired Oxygen - Titration Pulse Oximetry Post Tiitration 96 01/25/25 23:10 01/25/25 23:25 01/25/25 23:30 Temperature Temperature Source Pulse Rate 92 H Pulse Rate [Apical] Respiratory Rate 24 Respiratory Effort / Characteristics Respiratory Depth Blood Pressure 183/96 H Blood Pressure [Left Arm] Blood Pressure Mean 124 Blood Pressure Mean [Left Arm] Pulse Oximetry 96 94 Oxygen Delivery Method Nasal Cannula Oxygen Flow Rate 4 4 Fraction of Inspired Oxygen 98 Sepsis Recent Fever Within 48 Hours Sepsis New/Unexplained Change in Mental Status Sepsis Action Taken by Nursing Oxygen Flow Rate - Titration 2 Fraction of Inspired Oxygen - Titration 95 Pulse Oximetry Post Tiitration 01/26/25 00:09 01/26/25 00:30 01/26/25 01:00 Temperature 37.4 C Temperature Source Pulse Rate 91 H 96 H 90 Pulse Rate [Apical] Respiratory Rate 24 24 24 Respiratory Effort / Characteristics Respiratory Depth Blood Pressure 168/80 H 151/80 H 137/63 Blood Pressure [Left Arm] Blood Pressure Mean 109 103 76 Blood Pressure Mean [Left Arm] Pulse Oximetry 96 100 96 Oxygen Delivery Method Nasal Cannula Nasal Cannula Oxygen Flow Rate 2 2 Fraction of Inspired Oxygen Sepsis Recent Fever Within 48 Hours Sepsis New/Unexplained Change in Mental Status Sepsis Action Taken by Nursing Oxygen Flow Rate - Titration Fraction of Inspired Oxygen - Titration Pulse Oximetry Post Tiitration 01/26/25 01:30 01/26/25 02:55 01/26/25 03:00 Temperature Temperature Source Pulse Rate 83 77 Pulse Rate [Apical] 77 Respiratory Rate 24 20 22 Respiratory Effort / Characteristics Respiratory Depth Blood Pressure 110/56 L 115/55 L Blood Pressure [Left Arm] 105/79 Blood Pressure Mean 74 73 Blood Pressure Mean [Left Arm] 87 Pulse Oximetry 95 95 96 Oxygen Delivery Method Nasal Cannula Oxygen Flow Rate 2 Fraction of Inspired Oxygen Sepsis Recent Fever Within 48 Hours Sepsis New/Unexplained Change in Mental Status Sepsis Action Taken by Nursing Oxygen Flow Rate - Titration Fraction of Inspired Oxygen - Titration Pulse Oximetry Post Tiitration 01/26/25 03:01 Temperature Temperature Source Pulse Rate 79 Pulse Rate [Apical] Respiratory Rate Respiratory Effort / Characteristics Respiratory Depth Blood Pressure Blood Pressure [Left Arm] Blood Pressure Mean Blood Pressure Mean [Left Arm] Pulse Oximetry Oxygen Delivery Method Oxygen Flow Rate Fraction of Inspired Oxygen Sepsis Recent Fever Within 48 Hours Sepsis New/Unexplained Change in Mental Status Sepsis Action Taken by Nursing Oxygen Flow Rate - Titration Fraction of Inspired Oxygen - Titration Pulse Oximetry Post Tiitration Laboratory Data 01/25/25 23:46 01/26/25 07:51 Lab Results 01/25/25 01/25/25 01/26/25 Range/Units 23:35 23:46 00:00 WBC 17.96 H (4.8-10.8) K/ul RBC 4.14 L (4.20-5.40) M/uL Hgb 12.0 (12.0-16.0) g/dl Hct 36.6 L (37.0-47.0) % MCV 88.4 (80.0-100.0) fL MCH 29.0 (25.0-34.0) pg MCHC 32.8 (32.0-36.0) g/dL RDW Std Deviation 45.3 (36.4-46.3) fL RDW Coeff of Autumn 14.2 (11.5-14.5) % Plt Count 256 (130-400) K/uL MPV 10.3 (9.4-12.4) fL Immature Gran % (Auto) 0.6 % Neut % (Auto) 94.2 % Lymph % (Auto) 2.2 % Wharton % (Auto) 2.7 % Eos % (Auto) 0.1 % Baso % (Auto) 0.2 % Neut # (Auto) 16.91 H (1.40-6.50) K/uL Lymph # (Auto) 0.39 L (1.20-3.40) K/uL Wharton # (Auto) 0.49 (0.11-0.59) K/uL Eos # (Auto) 0.02 (0.00-0.50) K/uL Baso # (Auto) 0.04 (0.00-0.20) K/uL Immature Gran # (Auto) 0.11 (0.01-0.20) K/uL Polychromasia 1+ Sodium 138 (136-145) mmol/L Potassium 4.0 (3.5-5.1) mmol/L Chloride 101 (98-107) mmol/L Carbon Dioxide 30 (21-32) mmol/L Anion Gap 7 (3-11) BUN 33 H (6-23) mg/dl Creatinine 1.64 H (0.6-1.2) mg/dl Est Cr Clr Drug Dosing 34.9 ml/min eGFR 30.12 BUN/Creatinine Ratio 20.1 H (10-20) Glucose 125 H (70-99(Fasting)) mg/dl Lactate 1.4 (0.4-2.0) mmol/L Calcium 9.2 (8.6-10.3) mg/dl Magnesium 1.8 (1.7-2.4) mg/dl Total Bilirubin 0.5 (0.2-1.0) mg/dl Direct Bilirubin 0.1 (0-0.2) mg/dl AST 18 (13-39) U/L ALT 8 (7-52) U/L Alkaline Phosphatase 92 (34-104) U/L Troponin I High Sens 655.1 H* (0-14) pg/ml Total Protein 6.7 (6.0-8.3) gm/dl Albumin 3.4 (3.4-5.0) gm/dl Procalcitonin 3.75 H (0-0.5) ng/ml Urine Color Yellow Urine Appearance Clear (Clear) Urine pH 7.0 (4.5-7.5) Ur Specific Mes[place] 1.011 (1.000-1.030) Urine Protein Negative (Negative) Urine Glucose (UA) Negative (Negative) Urine Ketones Negative (Negative) Urine Blood 1+ H (Negative) Urine Nitrite Negative (Negative) Urine Bilirubin Negative (Negative) Urine Urobilinogen Negative (Negative) Ur Leukocyte Esterase Negative (Negative) Urine WBC (Auto) 0-5 (0-5) /hpf Urine RBC (Auto) 11-20 H (0-2) /hpf U Hyaline Cast (Auto) 0-2 (0-2) /lpf U Epithel Cells (Auto) 0-2 (0-2) /hpf Urine Bacteria (Auto) None Seen (None Seen) Urine Comment SARS-CoV-2 (PCR) NEGATIVE (Negative) Influenza Type A (PCR) Negative (Neg) Influenza Type B (PCR) Negative (Neg) RSV (RT-PCR) Negative (Neg) Streptococcus sp PCR DETECTED A (NotDetected) Strep agalactiae (PCR) DETECTED A (NotDetected) Bld Cult ID Panel PCR See PCR Comment (NotDetected) 01/26/25 Range/Units 02:21 WBC (4.8-10.8) K/ul RBC (4.20-5.40) M/uL Hgb (12.0-16.0) g/dl Hct (37.0-47.0) % MCV (80.0-100.0) fL MCH (25.0-34.0) pg MCHC (32.0-36.0) g/dL RDW Std Deviation (36.4-46.3) fL RDW Coeff of Autumn (11.5-14.5) % Plt Count (130-400) K/uL MPV (9.4-12.4) fL Immature Gran % (Auto) % Neut % (Auto) % Lymph % (Auto) % Wharton % (Auto) % Eos % (Auto) % Baso % (Auto) % Neut # (Auto) (1.40-6.50) K/uL Lymph # (Auto) (1.20-3.40) K/uL Wharton # (Auto) (0.11-0.59) K/uL Eos # (Auto) (0.00-0.50) K/uL Baso # (Auto) (0.00-0.20) K/uL Immature Gran # (Auto) (0.01-0.20) K/uL Polychromasia Sodium (136-145) mmol/L Potassium (3.5-5.1) mmol/L Chloride (98-107) mmol/L Carbon Dioxide (21-32) mmol/L Anion Gap (3-11) BUN (6-23) mg/dl Creatinine (0.6-1.2) mg/dl Est Cr Clr Drug Dosing ml/min eGFR BUN/Creatinine Ratio (10-20) Glucose (70-99(Fasting)) mg/dl Lactate (0.4-2.0) mmol/L Calcium (8.6-10.3) mg/dl Magnesium (1.7-2.4) mg/dl Total Bilirubin (0.2-1.0) mg/dl Direct Bilirubin (0-0.2) mg/dl AST (13-39) U/L ALT (7-52) U/L Alkaline Phosphatase (34-104) U/L Troponin I High Sens 1145.5 H* D (0-14) pg/ml Total Protein (6.0-8.3) gm/dl Albumin (3.4-5.0) gm/dl Procalcitonin (0-0.5) ng/ml Urine Color Urine Appearance (Clear) Urine pH (4.5-7.5) Ur Specific Mes[place] (1.000-1.030) Urine Protein (Negative) Urine Glucose (UA) (Negative) Urine Ketones (Negative) Urine Blood (Negative) Urine Nitrite (Negative) Urine Bilirubin (Negative) Urine Urobilinogen (Negative) Ur Leukocyte Esterase (Negative) Urine WBC (Auto) (0-5) /hpf Urine RBC (Auto) (0-2) /hpf U Hyaline Cast (Auto) (0-2) /lpf U Epithel Cells (Auto) (0-2) /hpf Urine Bacteria (Auto) (None Seen) Urine Comment SARS-CoV-2 (PCR) (Negative) Influenza Type A (PCR) (Neg) Influenza Type B (PCR) (Neg) RSV (RT-PCR) (Neg) Streptococcus sp PCR (NotDetected) Strep agalactiae (PCR) (NotDetected) Bld Cult ID Panel PCR (NotDetected) Administered Medications Carvedilol (Carvedilol 6.25 Mg Tab) 6.25 mg PO BIDM [facility] Stop: 02/25/25 07:59 Last Admin: 01/26/25 09:44 Dose: Not Given Documented By: NILAR Heparin Sodium (Porcine) (Heparin Sod 5,000 Unit/0.5 Ml Vial) 7,500 units SQ Q8 [facility] Stop: 02/25/25 05:59 Last Admin: 01/26/25 15:32 Dose: 7,500 units Documented By: Admin: 01/26/25 05:06 Dose: 7,500 units Documented By: CAITY Levothyroxine Sodium (Levothyroxine Sodium 75 Mcg Tablet) 75 mcg PO DAILYBB [facility] Stop: 02/25/25 06:29 Last Admin: 01/26/25 05:07 Dose: 75 mcg Documented By: CAITY Discontinued Medications Acetaminophen (Acetaminophen 500 Mg Tab) 1,000 mg PO NOW STA Stop: 01/25/25 23:30 Last Admin: 01/25/25 23:57 Dose: 1,000 mg Documented By: CROW Sodium Chloride (Nss) 1,000 mls @ 999 mls/hr IV .Q1H1M ONE Stop: 01/26/25 00:31 Last Infusion: 01/26/25 01:01 Dose: Infused Documented By: Admin: 01/25/25 23:53 Dose: 999 mls/hr Documented By: CROW Vancomycin HCl 2,750 mg/ (Sodium Chloride) 555 mls @ 200 mls/hr IV NOW ONE Stop: 01/26/25 02:17 Last Infusion: 01/26/25 03:25 Dose: Infused Documented By: Admin: 01/26/25 00:08 Dose: 200 mls/hr Documented By: CROW Sodium Chloride (Nss) 1,000 mls @ 999 mls/hr IV .Q1H1M ONE Stop: 01/26/25 01:12 Last Infusion: 01/26/25 03:22 Dose: Infused Documented By: Admin: 01/26/25 01:02 Dose: 999 mls/hr Documented By: CROW Imaging Data Radiologist's Impression: Chest X-Ray 01/25/25 23:04 Exam(s): XR CXR 1 VIEW EXAM: XR Chest, 1 View CLINICAL HISTORY: Sepsis. TECHNIQUE: Frontal view of the chest. COMPARISON: 08/11/2024 FINDINGS: Heart is mildly enlarged. Pulmonary vessels are top-normal in caliber without definite CHF. Hypoventilation. Mild bibasilar atelectasis, less likely infiltrate. No pleural effusion or pneumothorax. Bones are unchanged. IMPRESSION: Pulmonary vessels top-normal in caliber without definite CHF. Hypoventilation with mild bibasilar atelectasis, less likely infiltrate. Electronically signed by: Fabian Yanez M.D. 01/26/25 02:22 AM Discharge Plan Visit Data Chief Complaint: Arrhythmia/Palpitations Stated Complaint: Chest Palpitations, Weakness ED Provider: Cherry Land Discharge Problem: Sepsis, Cellulitis of leg, right Patient Disposition: Admitted As Inpatient Condition: Critical Discharge Instructions Interventions: ED Discharge Assessment Last Done: 01/26/25 04:12
[2025-01-26] MEDS ORDERED: carvediloL 12.5 MG TAB PO SCH (08:00)
[2025-01-26 08:29] LABS: BUN Creatinine Ratio 17.8 (10-20); Creatinine Clr Calc Pharmacy 29.7 ml/min; Potassium 3.9 mmol/L (3.5-5.1)
[2025-01-26] MEDS: carvediloL 6.25 MG TAB PO SCH (09:44)
[2025-01-26 11:17] LABS: A calco-baum cmplx NotReported Not Detected (NotDetected); Bact fragilis Not Reported Not Detected (NotDetected); Blood Culture Id Panel See PCR Comment (NotDetected); C auris Not Reported Not Detected (NotDetected); Calbicans Not Reported Not Detected (NotDetected); Candida glabrata Not Reported Not Detected (NotDetected); Candida krusei Not Reported Not Detected (NotDetected); Cneoformans/gatti Not Reported Not Detected (NotDetected); Cparapsilosis Not Reported Not Detected (NotDetected); Ctropicalis Not Reported Not Detected (NotDetected); E cloacae compx Not Reported Not Detected (NotDetected); Efaecalis Not Reported Not Detected (NotDetected); Efaecium Not Reported Not Detected (NotDetected); Enterobacterales Not Reported Not Detected (NotDetected); Escherichia coli Not Reported Not Detected (NotDetected); H influenzae Not Reported Not Detected (NotDetected); K aerogenes Not Reported Not Detected (NotDetected); Koxytoca Not Reported Not Detected (NotDetected); Kpneumoniae grp Not Reported Not Detected (NotDetected); Lmonocyt Not Reported Not Detected (NotDetected); N meningitidis Not Reported Not Detected (NotDetected); P aeruginosa Not Reported Not Detected (NotDetected); Proteus spp Not Reported Not Detected (NotDetected); Salmonella spp Not Reported Not Detected (NotDetected); Staph lugdunensis Not Reported Not Detected (NotDetected); Staph spp. Not Reported Not Detected (NotDetected); Staphaureus Not Reported Not Detected (NotDetected); Staphepi Not Reported Not Detected (NotDetected); Stenmaltophilia Not Reported Not Detected (NotDetected); Strep agal(GrpB) Not Reported DETECTED (NotDetected); Strep pneum Not Reported Not Detected (NotDetected); Strep pyog (GrpA) Not Reported Not Detected (NotDetected); Strep spp Not Reported DETECTED (NotDetected); Streptococcus spp DETECTED (NotDetected)
[2025-01-26 12:11] LABS: Streptococcus agalactiae(GrpB) DETECTED (NotDetected)
--- NOTE | 2025-01-26 12:49 | Communication Note ---
Date of Service: January 26, 2025 I got a report of positive blood cultures x 2 Patient already on vancomycin, will continue await full characterization
--- NOTE | 2025-01-26 15:35 | Pharmacy Report ---
Pharmacy PK ABX Note - Date of Service January 26, 2025 - Assessment and Plan Assessment 89 year old F receiving Vancomycin for treatment of RLE cellulitis and bacteremia. Pertinent microbiologic data includes: blood cultures positive for gram positive cocci in chains. Day #1 of antimicrobial therapy. Plan Vancomycin * Loading dose: 2750 mg IV x 1 * Maintenance dose: 1000 mg IV every 24 hours * Regimen is predicted to achieve target AUC/CAROLIN of 400-600 mg/L.hr * Random level ordered for: 01/28/25 with AM labs Pharmacy will continue to follow and will adjust dose/frequency as necessary. Thank you. Pharmacy has transitioned to AUC monitoring for vancomycin. AUC/CAROLIN is the preferred PK/PD target and is associated with decreased risk of nephrotoxicity compared to traditional trough targets.
[2025-01-26] MEDS: VANCOMYCIN HCL 1,000 MG/270 ML BAG IV SCH (23:39)
[2025-01-27] MEDS: ACETAMINOPHEN 325 MG TAB PO PRN (05:18)
[2025-01-27 06:16] LABS: Creatinine Clr Calc Pharmacy 29.5 ml/min
--- NOTE | 2025-01-27 13:19 | Hospitalist Progress Note ---
Date of Service January 27, 2025 Assessment & Plan (1) Sepsis: (2) Cellulitis of right leg: (3) Elevated troponin: (4) Chronic systolic heart failure: (5) HTN (hypertension): (6) Hypothyroidism: (7) Hyperlipidemia: (8) Stage 3b chronic kidney disease: (9) Morbid obesity with BMI of 40.0-44.9, adult: (10) Bacteremia: Plan 89yo female with chronic systolic CHF (uncertain EF), hypothyroidism, diffuse OA of numerous joints, HTN, CKD stage 3b, gout, morbid obesity, and untreated TESS presents from home after developing the acute onset of rigors about 6pm this evening. This was followed by weakness and familial concern for RLE cellulitis. Bacteremia source could be lower extremity cellulitis Blood cultures x 2 growing Gram positive in chains, full characterization pending (biofire indicates Strep) continue IV Vancomycin for now #sepsis - -2nd to RLE cellulitis? the area of cellulitis is quite mild - out of proportion to how ill she became prior to presentation -[id number] will continue IV vancomycin for cellulitis -Blood cultures now growing garm positives in chains #concern for RLE cellulitis - -family already demarcated the area of possible cellulitis, really no improvement in the area -although it is very mild, she was brought to the hospital very quickly after becoming ill; -IV vancomycin -serial exams #elevated troponin - -Likely demand ischemia from sepsis -presenting trop of 655 -repeat trop climbed to >1000, it has trended down -no ischemic symptoms at home or at time of admission -cont beta teresa -consider low-dose aspirin 81mg daily #chronic systolic CHF - -appears compensated -the limited amount of outside records references her CHF but I cannot find a copy of any prior echo -check echo to ascertain EF -hold Entresto due to low-normal BPs -hold aldactone & lasix due to low-normal BPs and mildly volume contracted state -cont coreg, but lower the dose to 6.25mg BID as BPs are mildly low in setting of sepsis #hypothyroidism - -TSH 08/2024 wnl -cont synthroid #morbid obesity - -BMI 43.8 #DVT proph - -due to morbid obesity and poor mobility start heparin 7500 units TID #CKD stage 3b - -baseline Cr 1.3 to 1.6 -Cr 1.6 today; repeat BMP am pt's 2 daughters updated at bedside will need PT/OT Admission and Anticipated Discharge Date Admission Date: January 26, 2025 Subjective patient seen and examined, feels a lot better Review of Systems Review of Systems: All systems reviewed are negative, apart from the ones contained in the history. Physical Exam Physical Exam: The patient is awake, alert and oriented 3, well developed and well nourished, normocephalic and atraumatic, lying in bed and in no acute distress. HEENT--PERRL, EOMI, mucous membranes and oropharynx mildly dry Neck--supple. No JVD. No bruits. Thyroid normal, trachea midline, no adenopathy. Heart--normal S1 and S2. No murmurs, rubs or gallops. Lungs--clear bilaterally, no respiratory distress, no accessory muscle use. Abdomen--normal bowel sounds and soft. Extremities--no cyanosis or clubbing. No edema. Dermatologic--normal skin turgor, normal color, no abnormal lymph nodes, no rash . Neurologic--cranial nerves II through XII grossly intact. Rheumatologic--normal range of motion. Psychiatric--normal affect. Results & Data Results & Data Vital Signs (Past 12 Hours) Vital Signs Temp Pulse Pulse Resp BP Pulse Ox O2 Del Method 01/27/25 12:23 98.1 F 73 20 130/72 96 Room Air 01/27/25 10:22 74 01/27/25 08:24 97.9 F 69 18 162/74 H 96 Room Air 01/27/25 03:30 98.4 F 71 16 157/68 H 94 Room Air PG Care Time/CCT Total # of Minutes Spent Total Time Spent with Patient: Total time spent is greater than 50% in coordination of care (as documented) at patient's floor/unit and/or counseling patient: Coding Level of Care Code 07023 SUB INP/OBS CARE 2/35MIN Diagnoses Sepsis A41.9 Cellulitis of right leg L03.115 Elevated troponin R79.89 Chronic systolic heart failure I50.22 HTN (hypertension) I10 Hypothyroidism E03.9 Hyperlipidemia E78.5 Stage 3b chronic kidney disease N18.32 Morbid obesity with BMI of 40.0-44.9, adult E66.01; Z68.41 Bacteremia R78.81 Time Spent (min) 35
[2025-01-28 05:47] LABS: Creatinine Clr Calc Pharmacy 36.3 ml/min
[2025-01-28 07:25] LABS: Hematocrit (blood only) 30.6 % (37.0-47.0); Hemoglobin 9.9 g/dl (12.0-16.0); Mean Corpuscular Hemoglobin 28.8 pg (25.0-34.0); Mean Corpuscular Hgb Conc 32.4 g/dL (32.0-36.0); Platelet Count 212 K/uL (130-400); RDW Coefficient of Variation 14.6 % (11.5-14.5); RDW Standard Deviation 47.2 fL (36.4-46.3); Red Blood Count 3.44 M/uL (4.20-5.40); White Blood Count 8.32 K/ul (4.8-10.8)
[2025-01-28 07:57] LABS: Calcium 8.2 mg/dl (8.6-10.3); Potassium 3.9 mmol/L (3.5-5.1)
[2025-01-28 08:02] LABS: BUN Creatinine Ratio 25.5 (10-20); Creatinine Clr Calc Pharmacy 35.6 ml/min
[2025-01-28] MEDS: amLODIPine BESYLATE 5 MG TAB PO SCH (08:32)
--- NOTE | 2025-01-28 11:52 | Infectious Disease Consult ---
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 The right dubon was mildly warm and erythematous. In the ER, she was febrile to 38.5, did have one episode of hypoxia to 88% and was placed on 2L NC. Initial labs with WBC 17.96, Cr 1.64, LFT wnl. Lactate negativ e. Troponin elevated. PCT 3.75. UA negative. COVID/Flu neg. BCX with GBS. CXR with mild bibasilar atelectasis. She has been getting vancomycin. ID consulted 01/28. Bacteremia could be 2/2 cellulitis. She does have hardware in her bl knees, but no issues currently. Would get TTE, which she says was already done. No spinal tenderness on exam. If repeat blood cx neg and no other source, will plan for PO regimen to complete therapy. # Bacteremia 2/2 Group B strep # RLE cellulitis # h/o bilateral TKA # CKD III # Morbid obesity # Multiple abx allergies - Kathleen ordered repeat blood cx - f/u TTE - will continue on vancomycin given allergy/reaction history Will continue to follow. If questions or concerns, contact via [employer] or Infectious Disease Call Center . Yasemin Dietz MD [facility], Division of Infectious Diseases Consultation Information Consultation was provided via telemedicine using two-way real-time interactive telecommunication between the patient and the telemedicine provider. For the duration of the visit, the provider was performing the assessment from a different facility than the patient. This includesuse of bluetooth stethoscope forauscultationperformed by the telepresenter that the telemedicine provider can hear if described in the physical exam. Lot Technician contact information: Please call [facility] Call Center . 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 On the day of presentation, she had started feeling more tired and then around dinner time, developed chills with significant weakness and difficulty walking. The right dubon was mildly warm and erythematous. She was also noted to be mildly confused and her color was off. In the ER, she was febrile to 38.5, did have one episode of hypoxia to 88% and was placed on 2L NC. Initial labs with WBC 17.96, Cr 1.64, LFT wnl. Lactate negative. Troponin elevated. PCT 3.75. UA negative. COVID/Flu neg. BCX with GBS. CXR with mild bibasilar atelectasis. She has been getting vancomycin. ID consulted 01/28. On evaluation, she reports feeling weak with inability to walk, and having chills She had a little bit of pain in the middle of her back which she says is from laying in bed. No diarrhea or vomiting. She does not have any joint swelling or pain. She does have some slight shortness of breath. No chest pain, abdominal pain. She doesnt recall any injuries to her right leg before it started getting red. Regarding her allergies, she says she may have had a rash to doxycycline a long time ago, rash to PCN in 2024, CTX she had hallucinations each time she received it, rash with sulfa. Allergies Allergy/AdvReac Type Severity Reaction Status Date / Time amlodipine [From Norvasc] Allergy Unknown Verified 10/11/24 14:10 ceftriaxone [From Rocephin] Allergy Unknown unknown Verified 10/11/24 14:10 clindamycin Allergy Unknown Verified 10/11/24 14:10 clonidine [From Catapres] Allergy Unknown unknown Verified 10/11/24 14:10 doxycycline Allergy Unknown unknown Verified 10/11/24 14:10 gabapentin [From Neurontin] Allergy Unknown Verified 10/11/24 14:10 meloxicam [From Mobic] Allergy Unknown Verified 10/11/24 14:10 Penicillins Allergy Unknown Verified 10/11/24 14:10 Rlkfyok-FZA-ToM Reductase Allergy Unknown Verified 10/11/24 14:10 Inhibitor Sulfa (Sulfonamide Allergy Unknown Verified 10/11/24 14:10 Antibiotics) tramadol Allergy Unknown Verified 10/11/24 14:10 cefadroxil AdvReac Unknown unknown Uncoded 10/11/24 14:10 statins AdvReac Unknown unknown Uncoded 10/11/24 14:10 Home Medications Medication Instructions Recorded Confirmed Type carvedilol 25 mg tablet 25 mg BID 08/11/24 01/28/25 History levothyroxine 75 mcg tablet 75 mcg DAILY 08/11/24 01/28/25 History sacubitril 97 mg-valsartan 103 mg 97 - 103 tab BID 08/11/24 01/28/25 History tablet (Entresto) [id number]-[id number]-[id number]-vit K-lut PO DAILY 09/04/24 10/11/24 History [Centrum Silver Women] furosemide 40 mg tablet 40 mg PO BID #60 tabs 09/10/24 01/28/25 Rx spironolactone 50 mg tablet 50 mg PO DAILY #90 tabs 10/11/24 01/28/25 Rx Patient History Medical History (Updated 01/26/25 @ 17:03 by Cherry Land DO) Anemia of chronic disease Vitamin D deficiency Stage 3b chronic kidney disease Venous stasis dermatitis Venous insufficiency Tributary (branch) retinal vein occlusion, left eye, with retinal neovascularization Spinal stenosis Presbyopia Cataract Obstructive sleep apnea Inflammatory arthritis Hyperlipidemia Lazara's disease Gout GERD (gastroesophageal reflux disease) DDD (degenerative disc disease), lumbar Chronic systolic heart failure Asthma Situational anxiety HTN (hypertension) Hypothyroidism Surgical History (Updated 01/26/25 @ 07:26 by Robe Partida MD) Hx of hemorrhoidectomy Hx of adenoidectomy Hx of tonsillectomy H/O cataract extraction H/O total knee replacement B/L S/P hysterectomy Family History Mother Anemia Eye problems Arthritis Hyperlipidemia Hypertension Coronary heart disease Father Arthritis COPD (chronic obstructive pulmonary disease) Allergies Hyperlipidemia Hypertension Sister Arthritis Aunt Diabetes Daughter Allergies Diabetes Social History (Updated 01/26/25 @ 07:27 by Robe Partida MD) Smoking Status: Never smoker Hx Alcohol Use: No Hx Substance Use: No Preferred Language: Setswana Communication Ability: Effective Construction 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 Operator Required: No Beliefs That Will Affect Care: None marital status: / Current Living Situation: Family Current Living Situation Comment: lives with daughter current occupational status: retired current occupation: worked at [employer] in [place] for 10+ years How many Children do You have: 6 Feels Safe at Home: Yes Safety Concerns: Feels Safe At This Time Diet: low salt and regular caffeine: Yes (1 pepsi daily) Physical Activity Frequency: Does not Exercise Seatbelt Use: always Do you think of yourself as: straight/heterosexual Gender Identity: Female Assistive Devices: Walker and Wheelchair Review of System 10-point review of systems reviewed and are negative except for as above. Physical Exam Physical Exam: General: Awake, alert, no acute distress HEENT: NC/AT, EOMI, mmm Neck: supple Lungs: respirations non-labored Heart: nl peripheral perfusion Abdomen: soft, NT/ND Back: no spinal tenderness Ext/skin: right leg with swelling, erythema over anterior lower leg in a small area, mild erythema on lateral right knee, nontender, additonal chronic skin changes Neuro: moving all extremities Results & Data Vital Signs (Past 12 Hours) Vital Signs Temp Pulse Pulse Resp BP BP Pulse Ox 01/28/25 11:18 36.7 C 67 16 164/75 H 96 01/28/25 10:54 01/28/25 08:47 01/28/25 08:01 36.4 C L 69 16 186/98 H 195/95 H 97 01/28/25 07:12 66 01/28/25 03:07 36.7 C 77 18 178/75 H 94 Pulse Ox O2 Del Method O2 Flow Rate 01/28/25 11:18 Room Air 01/28/25 10:54 96 0 01/28/25 08:47 Room Air 01/28/25 08:01 Room Air 01/28/25 07:12 01/28/25 03:07 Room Air Laboratory Results Labs reviewed. Diagnostic Findings Imaging reviewed.
--- NOTE | 2025-01-28 12:45 | Hospitalist Progress Note ---
Date of Service January 28, 2025 Assessment & Plan (1) Sepsis: (2) Cellulitis of right leg: (3) Elevated troponin: (4) Chronic systolic heart failure: (5) HTN (hypertension): (6) Hypothyroidism: (7) Hyperlipidemia: (8) Stage 3b chronic kidney disease: (9) Morbid obesity with BMI of 40.0-44.9, adult: (10) Bacteremia: Plan 89yo female with chronic systolic CHF (uncertain EF), hypothyroidism, diffuse OA of numerous joints, HTN, CKD stage 3b, gout, morbid obesity, and untreated TESS presents from home after developing the acute onset of rigors about 6pm this evening. This was followed by weakness and familial concern for RLE cellulitis. Bacteremia source could be lower extremity cellulitis Blood cultures growing Group B strep in 2 bottles Repeat cultures ordered by ID 2 D ECHO done, result pending continue IV Vancomycin for now #sepsis - -2nd to RLE cellulitis? the area of cellulitis is quite mild - out of proportion to how ill she became prior to presentation -[id number] will continue IV vancomycin for cellulitis -Blood cultures growing Group B strep in 2 bottles -continue IV vanc #concern for RLE cellulitis - -family already demarcated the area of possible cellulitis, really no improvement in the area -although it is very mild, she was brought to the hospital very quickly after becoming ill; -IV vancomycin -serial exams #elevated troponin - -Likely demand ischemia from sepsis -presenting trop of 655 -repeat trop climbed to >1000, it has trended down -no ischemic symptoms at home or at time of admission -cont beta teresa -consider low-dose aspirin 81mg daily #chronic systolic CHF - -appears compensated -the limited amount of outside records references her CHF but I cannot find a copy of any prior echo -check echo to ascertain EF -Resume Entresto, aldactone -cont coreg, but lower the dose to 6.25mg BID as BPs are mildly low in setting of sepsis #hypothyroidism - -TSH 08/2024 wnl -cont synthroid #morbid obesity - -BMI 43.8 #DVT proph - -due to morbid obesity and poor mobility start heparin 7500 units TID #CKD stage 3b - -baseline Cr 1.3 to 1.6 -Cr 1.6 today; repeat BMP am pt's 2 daughters updated at bedside will need PT/OT Admission and Anticipated Discharge Date Admission Date: January 26, 2025 Subjective patient seen and examined, feels a lot better Review of Systems Review of Systems: All systems reviewed are negative, apart from the ones contained in the history. Physical Exam Physical Exam: The patient is awake, alert and oriented 3, well developed and well nourished, normocephalic and atraumatic, lying in bed and in no acute distress. HEENT--PERRL, EOMI, mucous membranes and oropharynx mildly dry Neck--supple. No JVD. No bruits. Thyroid normal, trachea midline, no adenopathy. Heart--normal S1 and S2. No murmurs, rubs or gallops. Lungs--clear bilaterally, no respiratory distress, no accessory muscle use. Abdomen--normal bowel sounds and soft. Extremities--no cyanosis or clubbing. No edema. Dermatologic--normal skin turgor, normal color, no abnormal lymph nodes, no rash. Neurologic--cranial nerves II through XII grossly intact. Rheumatologic--normal range of motion. Psychiatric--normal affect. Results & Data Results & Data Vital Signs (Past 12 Hours) Vital Signs Temp Pulse Pulse Resp BP BP Pulse Ox 01/28/25 11:18 98.1 F 67 16 164/75 H 96 01/28/25 10:54 01/28/25 08:47 01/28/25 08:01 97.5 F L 69 16 186/98 H 195/95 H 97 01/28/25 07:12 66 01/28/25 03:07 98.1 F 77 18 178/75 H 94 Pulse Ox O2 Del Method O2 Flow Rate 01/28/25 11:18 Room Air 01/28/25 10:54 96 0 01/28/25 08:47 Room Air 01/28/25 08:01 Room Air 01/28/25 07:12 01/28/25 03:07 Room Air PG Care Time/CCT Total # of Minutes Spent Total Time Spent with Patient: Total time spent is greater than 50% in coordination of care (as documented) at patient's floor/unit and/or counseling patient: Coding Level of Care Code 76995 SUB INP/OBS CARE 2/35MIN Diagnoses Sepsis A41.9 Cellulitis of right leg L03.115 Elevated troponin R79.89 Chronic systolic heart failure I50.22 HTN (hypertension) I10 Hypothyroidism E03.9 Hyperlipidemia E78.5 Stage 3b chronic kidney disease N18.32 Morbid obesity with BMI of 40.0-44.9, adult E66.01; Z68.41 Bacteremia R78.81 Time Spent (min) 35
--- NOTE | 2025-01-28 14:57 | Pharmacy Report ---
Pharmacy PK ABX Note - Date of Service January 28, 2025 - Assessment and Plan Assessment 01/28 Blood cultures x 2 from 01/25 grew marquez sensitive Group B strep. Repeat blood cultures x 2 from 01/28 are pending. Vancomycin level drawn today was 18.8mcg/mL which extrapolates to an AUC within the goal range. Patient with CKD. SCr currently ~ baseline. 01/26 89 year old F receiving Vancomycin for treatment of RLE cellulitis and bacteremia. Pertinent microbiologic data includes: blood cultures positive for gram positive cocci in chains. Day #3 of antimicrobial therapy. Plan Vancomycin * Vancomycin level today was 18.8 which extrapolates to an AUC of 502mg/L.hr * Continue maintenance dose of: 1000 mg IV every 24 hours * Regimen is predicted to achieve target AUC/CAROLIN of 400-600 mg/L.hr * Another vanco level will be ordered in the next few days or as clinically warranted. Pharmacy will continue to follow and will adjust dose/frequency as necessary. Thank you. Pharmacy has transitioned to AUC monitoring for vancomycin. AUC/CAROLIN is the preferred PK/PD target and is associated with decreased risk of nephrotoxicity compared to traditional trough targets.
--- NOTE | 2025-01-28 15:59 | Electrocardiogram Report ---
Test Reason : Blood Pressure : */* mmHG Vent. Rate : 91 BPM Atrial Rate : 91 BPM P-R Int : 186 ms QRS Dur : 102 ms QT Int : 332 ms P-R-T Axes : 38 -5 49 degrees QTcB Int : 408 ms Normal sinus rhythm with sinus arrhythmia Minimal voltage criteria for LVH, may be normal variant ( Ahmet product ) Anterior infarct , age undetermined Abnormal ECG When compared with ECG of 11-Aug-2024 01:24, Premature supraventricular complexes are no longer Present Confirmed by Jl Saha ([id number]) on 01/28/2025 3:59:16 PM Referred By: REFERRED SELF Confirmed By: Jl Saha
--- NOTE | 2025-01-28 16:19 | XCELERA ---
[id number]
[2025-01-28] MEDS: FUROSEMIDE 40 MG TAB PO SCH (19:23)
[2025-01-28] MEDS ORDERED: Nursing to Pharmacy Communication SCH (19:30)
[2025-01-28] MEDS: MELATONIN 3 MG TAB PO PRN (22:04)
[2025-01-29 05:45] LABS: Creatinine Clr Calc Pharmacy 40.2 ml/min
[2025-01-29] MEDS: VALSARTAN/SACUBITRIL 103/97MG TAB PO SCH (08:19)
[2025-01-29] MEDS: SPIRONOLACTONE 25 MG TAB PO SCH (08:19)
[2025-01-29] MEDS: FUROSEMIDE 40 MG TAB PO SCH (08:20)
[2025-01-29 08:36] LABS: Hematocrit (blood only) 32.4 % (37.0-47.0); Hemoglobin 10.3 g/dl (12.0-16.0); Mean Corpuscular Hemoglobin 28.7 pg (25.0-34.0); Mean Corpuscular Hgb Conc 31.8 g/dL (32.0-36.0); Mean Corpuscular Volume 90.3 fL (80.0-100.0); Mean Platelet Volume 11.9 fL (9.4-12.4); Platelet Count 246 K/uL (130-400); RDW Coefficient of Variation 14.7 % (11.5-14.5); RDW Standard Deviation 48.8 fL (36.4-46.3); Red Blood Count 3.59 M/uL (4.20-5.40); White Blood Count 5.72 K/ul (4.8-10.8)
[2025-01-29 08:56] LABS: Calcium 8.7 mg/dl (8.6-10.3)
[2025-01-29 09:02] LABS: BUN Creatinine Ratio 22.5 (10-20)
--- NOTE | 2025-01-29 11:10 | Hospitalist Progress Note ---
Date of Service January 29, 2025 Assessment & Plan (1) Sepsis: (2) Cellulitis of right leg: (3) Elevated troponin: (4) Chronic systolic heart failure: (5) HTN (hypertension): (6) Hypothyroidism: (7) Hyperlipidemia: (8) Stage 3b chronic kidney disease: (9) Morbid obesity with BMI of 40.0-44.9, adult: (10) Bacteremia: Plan 89yo female with chronic systolic CHF (uncertain EF), hypothyroidism, diffuse OA of numerous joints, HTN, CKD stage 3b, gout, morbid obesity, and untreated TESS presents from home after developing the acute onset of rigors about 6pm this evening. This was followed by weakness and familial concern for RLE cellulitis. Bacteremia source could be lower extremity cellulitis Blood cultures growing Group B strep in 2 bottles Repeat cultures ordered by ID 2 D ECHO did not show any valvular abnormalities continue IV Vancomycin for now #sepsis - -2nd to RLE cellulitis? the area of cellulitis is quite mild - out of proportion to how ill she became prior to presentation -[id number] will continue IV vancomycin for cellulitis -Blood cultures growing Group B strep in 2 bottles -continue IV vanc #concern for RLE cellulitis - -family already demarcated the area of possible cellulitis, really no improvement in the area -although it is very mild, she was brought to the hospital very quickly after becoming ill; -IV vancomycin -serial exams #elevated troponin - -Likely demand ischemia from sepsis -presenting trop of 655 -repeat trop climbed to >1000, it has trended down -no ischemic symptoms at home or at time of admission -cont beta teresa -consider low-dose aspirin 81mg daily HTN Poorly controlled Resume her home meds she is on Entresto, spirionolactone #chronic systolic CHF - -appears compensated 2 D ECHO shows EF 60-65% -Resume Entresto, aldactone -cont coreg, but lower the dose to 6.25mg BID as BPs are mildly low in setting of sepsis #hypothyroidism - -TSH 08/2024 wnl -cont synthroid #morbid obesity - -BMI 43.8 #DVT proph - -due to morbid obesity and poor mobility start heparin 7500 units TID #BEAU onCKD stage 3b - -baseline Cr 1.3 to 1.6 -cr close to baseline DNR/DNI Disposition: continue hospitalization Admission and Anticipated Discharge Date Admission Date: January 26, 2025 Subjective patient seen and examined, feels a lot better Review of Systems Review of Systems: All systems reviewed are negative, apart from the ones contained in the history. Physical Exam Physical Exam: The patient is awake, alert and oriented 3, well developed and well nourished, normocephalic and atraumatic, lying in bed and in no acute distress. HEENT--PERRL, EOMI, mucous membranes and oropharynx mildly dry Neck--supple. No JVD. No bruits. Thyroid normal, trachea midline, no adenopathy. Heart--normal S1 and S2. No murmurs, rubs or gallops. Lungs--clear bilaterally, no respiratory distress, no accessory muscle use. Abdomen--normal bowel sounds and soft. Extremities--no cyanosis or clubbing. No edema. Dermatologic--normal skin turgor, normal color, no abnormal lymph nodes, no rash. Neurologic--cranial nerves II through XII grossly intact. Rheumatologic--normal range of motion. Psychiatric--normal affect. Results & Data Results & Data Vital Signs (Past 12 Hours) Vital Signs Temp Pulse Pulse Resp BP BP Pulse Ox 01/29/25 10:51 97.7 F 70 18 199/85 H 94 01/29/25 07:31 97.5 F L 64 19 191/76 H 96 01/29/25 07:13 01/29/25 07:12 62 01/29/25 02:44 97.9 F 68 18 174/68 H 95 01/29/25 00:00 O2 Del Method 01/29/25 10:51 Room Air 01/29/25 07:31 Room Air 01/29/25 07:13 Room Air 01/29/25 07:12 01/29/25 02:44 Room Air 01/29/25 00:00 Room Air PG Care Time/CCT Total # of Minutes Spent Total Time Spent with Patient: Total time spent is greater than 50% in coordination of care (as documented) at patient's floor/unit and/or counseling patient: Coding Level of Care Code 33860 SUB INP/OBS CARE 2/35MIN Diagnoses Sepsis A41.9 Cellulitis of right leg L03.115 Elevated troponin R79.89 Chronic systolic heart failure I50.22 HTN (hypertension) I10 Hypothyroidism E03.9 Hyperlipidemia E78.5 Stage 3b chronic kidney disease N18.32 Morbid obesity with BMI of 40.0-44.9, adult E66.01; Z68.41 Bacteremia R78.81 Time Spent (min) 35
--- NOTE | 2025-01-29 11:11 | Infectious Disease Progress Nt ---
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 The right dubon was mildly warm and erythematous. In the ER, she was febrile to 38.5, did have one episode of hypoxia to 88% and was placed on 2L NC. Initial labs with WBC 17.96, Cr 1.64, LFT wnl. Lactate negati ve. Troponin elevated. PCT 3.75. UA negative. COVID/Flu neg. BCX with GBS. CXR with mild bibasilar atelectasis. She has been getting vancomycin. ID consulted 01/28. TTE with no significant valvular disease. QTC 408. Waiting for repeat blood cx. If negative, plan for PO antibiotics for remainder of treatment (ie levofloxacin given allergies). # Bacteremia 2/2 Group B strep # RLE cellulitis # h/o bilateral TKA # CKD III # Morbid obesity # Multiple abx allergies - f/u blood cx - continue on vancomycin given allergy/reaction history - if blood cx are negative x 48hrs and shes ready for discharge, then abx can be changed to levofloxacin 750mg PO q48hr (based on renal function) to complete 7 days starting from negative BCX Will continue to follow. If questions or concerns, contact via [employer] or Infectious Disease Call Center . Yasemin Dietz MD [facility], Division of Infectious Diseases Admission and Anticipated Discharge Date Admission Date: January 26, 2025 Subjective Subsequent visit was provided via telemedicine using two-way real-time interacti ve telecommunication between the patient and the telemedicine provider. For the duration of the visit, the provider was performing the assessment from a different facility than the patient. This includesuse of bluetooth stethoscope forauscultationperformed by the telepresenter that the telemedicine provider can hear if described in the physical exam. Surveillance Observer contact information: Please call [facility] Call Center . (Phone Number For Physician Use Only) After establishing a telemedicine visit, patient was: Patient was verified with two unique identifiers, Patient/authorized rep acknowledged consent and understanding and Gave permission to continue telehealth session Time Spent with Patient: Subsequent => 55 min Patient feeling better today. No pain. Reports soft stools. Physical Exam Physical Exam: General: Awake, alert, no acute distress HEENT: NC/AT, EOMI, mmm Neck: supple Lungs: respirations non-labored Heart: nl peripheral perfusion Abdomen: soft, NT/ND Ext/skin: right leg with swelling, improving erythema over anterior lower leg in a small area, mild erythema on lateral right knee, nontender, additional chronic skin changes Neuro: moving all extremities Results & Data Vital Signs (Past 12 Hours) Vital Signs Temp Pulse Pulse Resp BP BP Pulse Ox 01/29/25 10:51 36.5 C 70 18 199/85 H 94 01/29/25 07:31 36.4 C L 64 19 191/76 H 96 01/29/25 07:13 01/29/25 07:12 62 01/29/25 02:44 36.6 C 68 18 174/68 H 95 01/29/25 00:00 O2 Del Method 01/29/25 10:51 Room Air 01/29/25 07:31 Room Air 01/29/25 07:13 Room Air 01/29/25 07:12 01/29/25 02:44 Room Air 01/29/25 00:00 Room Air Laboratory Results Labs reviewed. Diagnostic Findings Imaging reviewed.
[2025-01-29] MEDS: hydrALAZINE HCL 20 MG/ML VIAL IV ONE (11:29)
[2025-01-30 06:22] LABS: Hematocrit (blood only) 32.6 % (37.0-47.0); Hemoglobin 10.7 g/dl (12.0-16.0); Mean Corpuscular Hemoglobin 29.2 pg (25.0-34.0); Mean Corpuscular Hgb Conc 32.8 g/dL (32.0-36.0); Mean Corpuscular Volume 88.8 fL (80.0-100.0); Mean Platelet Volume 11.3 fL (9.4-12.4); Platelet Count 266 K/uL (130-400); RDW Coefficient of Variation 14.4 % (11.5-14.5); RDW Standard Deviation 46.7 fL (36.4-46.3); Red Blood Count 3.67 M/uL (4.20-5.40); White Blood Count 6.58 K/ul (4.8-10.8)
[2025-01-30 06:56] LABS: BUN Creatinine Ratio 21.3 (10-20); Calcium 8.7 mg/dl (8.6-10.3); Creatinine Clr Calc Pharmacy 40.5 ml/min; Potassium 3.8 mmol/L (3.5-5.1)
--- NOTE | 2025-01-30 10:22 | Hospitalist Progress Note ---
Date of Service January 30, 2025 Assessment & Plan (1) Sepsis: (2) Cellulitis of right leg: (3) Elevated troponin: (4) Chronic systolic heart failure: (5) HTN (hypertension): (6) Hypothyroidism: (7) Hyperlipidemia: (8) Stage 3b chronic kidney disease: (9) Morbid obesity with BMI of 40.0-44.9, adult: (10) Bacteremia: Plan 89yo female with chronic systolic CHF (uncertain EF), hypothyroidism, diffuse OA of numerous joints, HTN, CKD stage 3b, gout, morbid obesity, and untreated TESS presents from home after developing the acute onset of rigors about 6pm this evening. This was followed by weakness and familial concern for RLE cellulitis. Bacteremia source could be lower extremity cellulitis Blood cultures growing Group B strep in 2 bottles Repeat cultures ordered by ID 2 D ECHO did not show any valvular abnormalities continue IV Vancomycin for now If repeat cultures remain negative in 48 hrs (tomorrow), will discharge on PO Levofloxacin for 7 days per ID #sepsis - -2nd to RLE cellulitis? the area of cellulitis is quite mild - out of proportion to how ill she became prior to presentation -[id number] will continue IV vancomycin for cellulitis -Blood cultures growing Group B strep in 2 bottles -continue IV vanc for now #concern for RLE cellulitis - -family already demarcated the area of possible cellulitis, really no improvement in the area -although it is very mild, she was brought to the hospital very quickly after becoming ill; -IV vancomycin -serial exams #elevated troponin - -Likely demand ischemia from sepsis -presenting trop of 655 -repeat trop climbed to >1000, it has trended down -no ischemic symptoms at home or at time of admission -cont beta teresa -consider low-dose aspirin 81mg daily HTN Poorly controlled Resume her home meds she is on Entresto, spirionolactone she has some allergies to other BP meds #chronic systolic CHF - -appears compensated 2 D ECHO shows EF 60-65% -Resume Entresto, aldactone -cont coreg, but lower the dose to 6.25mg BID as BPs are mildly low in setting of sepsis #hypothyroidism - -TSH 08/2024 wnl -cont synthroid #morbid obesity - -BMI 43.8 #DVT proph - -due to morbid obesity and poor mobility start heparin 7500 units TID #BEAU onCKD stage 3b - -baseline Cr 1.3 to 1.6 -cr close to baseline DNR/DNI Disposition: Hopefully d/c tomorrow on PO antibiotics Admission and Anticipated Discharge Date Admission Date: January 26, 2025 Subjective patient seen and examined, sitting at the edge of her bed, feels better overall, although worried about her BP Review of Systems Review of Systems: All systems reviewed are negative, apart from the ones contained in the history. Physical Exam Physical Exam: The patient is awake, alert and oriented 3, well developed and well nourished, normocephalic and atraumatic, lying in bed and in no acute distress. HEENT--PERRL, EOMI, mucous membranes and oropharynx mildly dry Neck--supple. No JVD. No bruits. Thyroid normal, trachea midline, no adenopathy. Heart--normal S1 and S2. No murmurs, rubs or gallops. Lungs--clear bilaterally, no respiratory distress, no accessory muscle use. Abdomen--normal bowel sounds and soft. Extremities--no cyanosis or clubbing. No edema. Dermatologic--normal skin turgor, normal color, no abnormal lymph nodes, no rash. Neurologic--cranial nerves II through XII grossly intact. Rheumatologic--normal range of motion. Psychiatric--normal affect. Results & Data Results & Data Vital Signs (Past 12 Hours) Vital Signs Temp Pulse Resp BP Pulse Ox O2 Del Method 01/30/25 08:00 Room Air 01/30/25 08:00 97.3 F L 76 18 190/83 H 96 Room Air 01/30/25 02:49 98.1 F 77 18 185/80 H 95 Room Air 01/29/25 22:51 97.9 F 79 18 186/81 H 95 Room Air PG Care Time/CCT Total # of Minutes Spent Total Time Spent with Patient: Total time spent is greater than 50% in coordination of care (as documented) at patient's floor/unit and/or counseling patient: Coding Level of Care Code 62618 SUB INP/OBS CARE 2/35MIN Diagnoses Sepsis A41.9 Cellulitis of right leg L03.115 Elevated troponin R79.89 Chronic systolic heart failure I50.22 HTN (hypertension) I10 Hypothyroidism E03.9 Hyperlipidemia E78.5 Stage 3b chronic kidney disease N18.32 Morbid obesity with BMI of 40.0-44.9, adult E66.01; Z68.41 Bacteremia R78.81 Time Spent (min) 35
--- NOTE | 2025-01-30 16:27 | Infectious Disease Progress Nt ---
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 and course of abx, replacement of TKA 04/2021, admission 08/2024 with RLE cellulitis dcd on Keflex/doxy who presented on 01/26 with acute onset of rigors. The right dubon was mildly warm and erythematous. In the ER, she was febrile to 38.5, did have one episode of hypoxia to 88% and was placed on 2L NC. Initial labs with WBC 17.96, Cr 1.64, LFT wnl. Lactate negati ve. Troponin elevated. PCT 3.75. UA negative. COVID/Flu neg. BCX with GBS. CXR with mild bibasilar atelectasis. She has been getting vancomycin. ID consulted 01/28. TTE with no significant valvular disease. QTC 408. Repeat blood cx no growth. Bacteremia may be 2/2 cellulitis. She does have hardware in her bl knees, but no issues currently. No spinal tenderness on exam. Given her allergies, will co mplete tx with levofloxacin. # Bacteremia 2/2 Group B strep # RLE cellulitis # h/o bilateral TKA # CKD III # Morbid obesity # Multiple abx allergies - f/u blood cx to completion - Im going to stop vancomycin and start levofloxacin 750mg PO q48hr (based on renal function) - would complete 7 days of abx starting from negative BCX (start 01/28, end 02/04) - would get surveillance blood cultures 1 week after she completes antibiotics Will discontinue active follow up at this time. Please do not hesitate to reconsult the Infectious Diseases service as needed. Yasemin Dietz MD [facility], Division of Infectious Diseases [employer]: [phone] Admission and Anticipated Discharge Date Admission Date: January 26, 2025 Subjective This patient recommendation is based on a telemedicine consult request which was completed asynchronously through chart review and information provided by the primary physician. The patient was not seen or examined today. The evaluation is consultative in nature and all patient care and treatment decisions can either be accepted or rejected by the patient's primary hospital-based treating physician using their own independent medical judgment for their patient. Time Spent Reviewing Chart: 31+ minutes Afebrile, blood cx negative. Results & Data Vital Signs (Past 12 Hours) Vital Signs Temp Pulse Resp BP Pulse Ox O2 Del Method 01/30/25 16:06 36.6 C 81 18 158/83 H 95 Room Air 01/30/25 11:56 36.4 C L 68 18 163/81 H 95 Room Air 01/30/25 08:00 Room Air 01/30/25 08:00 36.3 C L 76 18 190/83 H 96 Room Air Laboratory Results Labs reviewed.
[2025-01-30] MEDS: levoFLOXacin 750 MG TAB PO SCH (17:15)
[2025-01-31 06:38] LABS: Hematocrit (blood only) 34.8 % (37.0-47.0); Hemoglobin 11.8 g/dl (12.0-16.0); Mean Corpuscular Hemoglobin 29.9 pg (25.0-34.0); Mean Corpuscular Hgb Conc 33.9 g/dL (32.0-36.0); Mean Corpuscular Volume 88.3 fL (80.0-100.0); Mean Platelet Volume 11.3 fL (9.4-12.4); Platelet Count 269 K/uL (130-400); RDW Coefficient of Variation 14.3 % (11.5-14.5); RDW Standard Deviation 45.7 fL (36.4-46.3); Red Blood Count 3.94 M/uL (4.20-5.40); White Blood Count 6.43 K/ul (4.8-10.8)
[2025-01-31 07:03] LABS: BUN Creatinine Ratio 20.6 (10-20); Calcium 8.8 mg/dl (8.6-10.3); Creatinine Clr Calc Pharmacy 36.4 ml/min
--- NOTE | 2025-01-31 11:26 | Discharge Summary ---
Discharge Summary Date of Service January 31, 2025 Principal Dx & Hospital Course #1 = Principal Diagnosis (1) Sepsis: (2) Cellulitis of right leg: (3) Elevated troponin: (4) Chronic systolic heart failure: (5) HTN (hypertension): (6) Hypothyroidism: (7) Hyperlipidemia: (8) Stage 3b chronic kidney disease: (9) Morbid obesity with BMI of 40.0-44.9, adult: (10) Bacteremia: Plan 89yo female with chronic systolic CHF (uncertain EF), hypothyroidism, diffuse OA of numerous joints, HTN, CKD stage 3b, gout, morbid obesity, and untreated TESS presents from home after developing the acute onset of rigors about 6pm this evening. This was followed by weakness and familial concern for RLE cellulitis. #Bacteremia source could be right lower extremity cellulitis Blood cultures growing Group B strep in 2 bottles Repeat cultures ordered by ID 2 D ECHO did not show any valvular abnormalities treated with iv vanco repeat cultures remained negative at 48 hrs will discharge on PO Levofloxacin for 7 days per ID #sepsis - -2nd to RLE cellulitis? the area of cellulitis is quite mild - out of proportion to how ill she became prior to presentation -[id number] will continue IV vancomycin for cellulitis -Blood cultures growing Group B strep in 2 bottles -repeat negative. #elevated troponin - -Likely demand ischemia from sepsis -presenting trop of 655 -repeat trop climbed to >1000, it has trended down -no ischemic symptoms at home or at time of admission -cont beta teresa -consider low-dose aspirin 81mg daily HTN Poorly controlled Resume her home meds she is on Entresto, spirionolactone she has some allergies to other BP meds #chronic systolic CHF - -appears compensated 2 D ECHO shows EF 60-65% -Resume Entresto, aldactone -cont coreg, but lower the dose to 6.25mg BID as BPs are mildly low in setting of sepsis #hypothyroidism - -TSH 08/2024 wnl -cont synthroid #morbid obesity - -BMI 43.8 #DVT proph - -due to morbid obesity and poor mobility start heparin 7500 units TID #BEAU onCKD stage 3b - -baseline Cr 1.3 to 1.6 -cr close to baseline DNR/DNI Admission HPI Per Admitting Provider 89yo female with chronic systolic CHF (uncertain EF), hypothyroidism, diffuse OA of numerous joints, hypothyroidism, HTN, CKD stage 3b, gout, and untreated TESS presents from home after developing the acute onset of rigors about 6pm this evening. Patient had an uneventful week and woke up this morning feeling ok. By afternoon she was more tired than usual. She sat down for dinner with her famil y to eat [place] food - she did eat the meal - but then developed the chills. This was followed by significant weakness and difficulty walking. Her daughter who is a retired nurse noted that the right dubon was mildly warm and erythematous. Family also noted she was mildly confused and her color was off. EMS was summoned and she was brought to [facility]. Upon arrival she was given IV fluid boluses along with IV vancomycin for RLE cellulitis. During my assessment two of her daughters were present at bedside and they stated the right leg already looked a little better and her overall appearance was improved. Patient herself desired to talk about her arthritic complaints including chronic right hand numbness more so than anything else. By nursing report patient had mentioned having palpitations earlier in the day but the patient did not mention this to me. Discharge Exam The patient is awake, alert and oriented 3, well developed and well nourished, normocephalic and atraumatic, lying in bed and in no acute distress. HEENT--PERRL, EOMI, mucous membranes and oropharynx mildly dry Neck--supple. No JVD. No bruits. Thyroid normal, trachea midline, no adenopathy. Heart--normal S1 and S2. No murmurs, rubs or gallops. Lungs--clear bilaterally, no respiratory distress, no accessory muscle use. Abdomen--normal bowel sounds and soft. Extremities--no cyanosis or clubbing. No edema. Dermatologic--normal skin turgor, normal color, no abnormal lymph nodes, no rash. Neurologic--cranial nerves II through XII grossly intact. Rheumatologic--normal range of motion. Psychiatric--normal affect. Discharge Plan Discharge Items Patient Disposition: Home - Home Health Services Reason For Visit: RLE CELLULITIS,SEPSIS,+TROPONIN Discharge Diagnosis: RLE cellulitis Condition on Discharge: Critical Activity: Resume your previous activity Non-emergency contact: Primary Care Provider Call non-emergency contact if: you have any medication questions Follow-up/Referrals: Cullen,Yazan E. [Primary Care Provider] - (Unable to get throught to Dr. Berman's office. Please call to jeramy follow up.) Diet: Heart Healthy Addtl Attending Provider Instructions: Continue antibiotics tomorrow at 5 or 5:30 pm. Best take with food. You will take this every other day for only 2 doses. (02/01 and 02/03) Recommend your PCP to order a blood culture after 02/10 Pending Studies at Discharge: No Stand-Alone Forms: My [facility] dBMEDx, Smoking Cessation Medications and DC Order Prescriptions: New levofloxacin 750 mg Tablet 750 mg PO Q48H Qty: 2 0RF Rx Instructions: 02/01 and 02/03 at 5-5:30 pm TAKE WITH FOOD Continued furosemide 40 mg tablet 40 mg PO BID Qty: 60 3RF [id number]-vit K-lut [Centrum Silver Women] PO DAILY spironolactone 50 mg tablet 50 mg PO DAILY Qty: 90 3RF carvedilol 25 mg tablet 25 mg BID levothyroxine 75 mcg tablet 75 mcg DAILY Entresto 97-103 mg tablet 97 - 103 tab BID Discharge Orders: Discharge Order (Routine); Ordered 01/31/25 Ordered By: Yuriy Sanchez Admission Data Admit Date/Time: 01/26/25 03:19 Attending Provider: Yuriy Sanchez Admit Provider: Robe Partida Primary Care Provider: Yazan Berman Other Providers: Yasemin Dietz; [facility] Other Interventions: Discharge Summary Assessment (RN) Last Done: 01/31/25 16:28 Hospital Stay Data Consultations 01/26/25 01:29 ED Decision to Admit Stat 01/28/25 06:50 Consult Infectious Diseases Routine Pending Results Patient Have Any Pending Studies at Discharge: No Discharge Instructions Given to Patient (Per Discharging Provider) Continue antibiotics tomorrow at 5 or 5:30 pm. Best take with food. You will take this every other day for only 2 doses. (02/01 and 02/03) Recommend your PCP to order a blood culture after 02/10 Total Time Total Time Spent Total Time Spent (In Minutes): 32 Coding Level of Care Code 90819 INP/OBS DISCH >30 MIN Diagnoses Sepsis A41.9 Cellulitis of right leg L03.115 Elevated troponin R79.89 Chronic systolic heart failure I50.22 HTN (hypertension) I10 Hypothyroidism E03.9 Hyperlipidemia E78.5 Stage 3b chronic kidney disease N18.32 Morbid obesity with BMI of 40.0-44.9, adult E66.01; Z68.41 Bacteremia R78.81
[2025-01-31 16:18] VITALS: BP 158/80; PULSE 89; RESP 16; TEMP 97.7; O2SAT 94
--- NOTE | 2025-02-01 09:31 | Coding Query ---
CODING QUERY To promote full compliance with coding requirements relating to patient care, provider participation is requested in all cases of braille coder uncertainty. Please assist us with the question(s) below: Please clarify the meaning of BEAU. BEAU is not a valid abbreviation. Thank you. ( x ) Acute Kidney Injury (x ) Present on admission ( ) Not present on admission ( ) Unable to determine ( ) Acute Kidney Insufficiency ( ) Present on admission ( ) Not present on admission ( ) Unable to determine ( ) Other (Specify): ( ) Present on admission ( ) Not present on admission ( ) Unable to determine Principal Diagnosis: "that condition established after study, to be chiefly responsible for occasioning the admission of the patient to the hospital for care." Co-Existing Principal Diagnosis: "when two or more diagnoses equally meet the criteria for principal diagnosis as determined by the circumstances of admission, diagnostic work up, and/or therapy provided, and the Alphabetic Index, Tabular List, or another coding guideline does not provide sequencing direction, any one of the diagnoses may be sequenced first." "When the physician has documented what appears to be a current diagnosis in the body of the record, but has not included the diagnosis in the final diagnostic statement, the physician should be asked whether the diagnosis should be added." (Source Coding Clinic 2 QTR90. p3-4) LEONARDO
== END 2025-01-31 16:50 | disposition home health service (06) | DRG 872 ==
LOC: ED 22:47 → 4W 01-26 03:19 → SUATTDRO 01-26 03:19 → 4W 01-26 04:12